=== PATIENT | male | born 1940 | race Caucasian/White ===

== ENCOUNTER 2016-11-09 14:54 | Inpatient (IN) | payer MEDICARE, MEDICAID ==
[2016-11-09] MEDS ORDERED: Ondansetron ODT 4 MG TAB PO PRN (20:43)
[2016-11-09] MEDS ORDERED: DEXTROSE 5% IV PRN (20:46)
[2016-11-09] MEDS ORDERED: WATER IV PRN (20:46)
[2016-11-09] MEDS ORDERED: Dextrose 50% Abboject 50 ML SYRINGE SLOW IVP PRN (20:52)
[2016-11-09] MEDS ORDERED: Dextrose 5% in Water 1,000 ML IV PRN (20:52)
[2016-11-09] MEDS ORDERED: GLUTAMINE PO SCH (21:00)
[2016-11-09] MEDS ORDERED: NUT TX GLUC INTOLER LAC FR SOY PO SCH (21:00)
[2016-11-09] MEDS ORDERED: CALCIUM HMB PO SCH (21:00)
[2016-11-09] MEDS ORDERED: ARGININE PO SCH (21:00)
[2016-11-09] MEDS ORDERED: Losartan Potassium 25 MG TAB PO SCH (22:00)
[2016-11-09] MEDS ORDERED: Latanoprost 0.005% Ophth Soln 2.5 ml Bottle EA EYE SCH (22:00)
[2016-11-09] MEDS ORDERED: Allopurinol 100 MG TAB PO SCH (22:00)
[2016-11-09] MEDS: Clopidogrel Bisulfate 75 MG TAB PO SCH (22:04)
[2016-11-09] MEDS: Pravastatin Sodium 20 MG TAB PO SCH (22:05)
[2016-11-09] MEDS: Meropenem 1 GM in Sodium Chloride 0.9% 100 ML IVPB SCH (22:06)
[2016-11-09] MEDS: Insulin Regular 300 UNITS/3 ML VIAL SC PRN (22:09)
[2016-11-10] MEDS: Meropenem 1 GM in Sodium Chloride 0.9% 100 ML IVPB SCH ×3 (05:08→23:39)
[2016-11-10] MEDS: Enoxaparin Sodium 30 MG/0.3 ML SYRINGE SC SCH (05:08)
[2016-11-10] MEDS: Insulin Regular 300 UNITS/3 ML VIAL SC PRN ×2 (08:08→21:01)
[2016-11-10] MEDS: Furosemide 20 MG TAB PO SCH (08:08)
[2016-11-10] MEDS: Brinzolamide 1% Ophth Soln 10 ml Bottle EA EYE SCH (08:13)
[2016-11-10] MEDS: Insulin NPH/Reg Insulin Hm 300 UNITS/3 ML VIAL SC SCH ×2 (08:56→17:20)
[2016-11-10] MEDS: Pravastatin Sodium 20 MG TAB PO SCH (20:49)
[2016-11-10] MEDS: Clopidogrel Bisulfate 75 MG TAB PO SCH (20:49)
[2016-11-10] MEDS: Allopurinol 100 MG TAB PO SCH (20:50)
[2016-11-10] MEDS: Losartan Potassium 25 MG TAB PO SCH (20:52)
[2016-11-10] MEDS: Latanoprost 0.005% Ophth Soln 2.5 ml Bottle EA EYE SCH (20:55)
[2016-11-10] MEDS ORDERED: Sodium Chloride 0.9% 10 ML ONE (23:20)
--- NOTE | 2016-11-11 00:33 | HP ---
DATE OF ADMISSION: 11/09/2016 ADMITTING PHYSICIAN: Chely Terrazas M.D. REASON FOR ADMISSION: Extended care stay in [facility] for skilled rehabilitation secondary to physical debility, IV antibiotics and wound care. HISTORY OF PRESENT ILLNESS: Mr. Carrasco is a 76-year-old male with a past medical history of diabetes type 2, congestive heart failure, coronary artery disease, hypertension, and gout. The patient was admitted to [facility] in [place] from 10/28/2016-11/09/2016 for worsening appearance of his left great toe amputation site and worsening pain at the site. The patient had the initial left great toe amputation on 09/24/2016 and he had followed closely with Wound Care and his surgeon, Dr. Conde. The patient was in wound care on the day of admission when wound care team noted wound to be worsening, nonhealing and significant pain, so subsequently the patient was admitted. At that time, the patient was noted to have gangrene of the left foot in addition to a nonhealing stage IV ulceration to his right heel. The patient underwent abdominal aortogram with bilateral iliofemoral and lower extremity run off on by vascular surgeon, Dr. Madden and he underwent an intraoperative debridement of his left foot by Dr. Conde. During this procedure, a wound VAC was also placed. During the hospitalization, he was started on daily hyperbaric oxygen therapy in order to augment the healing of his left foot wound and his wound started healing progressively nicely. He was seen by Infectious Disease physician Dr. Lyon who recommended IV meropenem 3 times a day, to be completed on 12/18/2016 due to his extensive wound gangrene and osteomyelitis. Due to need for long-term IV antibiotic, wound care and physical debility, the patient was transferred to [facility] for continuation of his physical therapy, wound care and IV antibiotics. When I saw the patient today, he was pleasant, was happy to be out of hospital, agree the wounds were healing progressively nicely and is happy about that. He requests to go home on as he and his family has plans with the grandkids on which that request will be granted. PAST MEDICAL HISTORY: Diabetes type 2, congestive heart failure, coronary artery disease, hypertension, and gout. PAST SURGICAL HISTORY: Coronary artery bypass grafting x3, partial amputation of the right fifth digit, amputation of the left great toe in August 2016, cataract surgery, intraoperative debridement of the right heel. ALLERGIES: AMOXICILLIN, CODEINE, LEVAQUIN, and NAPROXEN. SOCIAL HISTORY: Negative for tobacco use. The patient has a history of social alcohol use. He denies any illicit drug use. FAMILY HISTORY: Significant for diabetes and coronary artery disease. MEDICATIONS: Allopurinol 150 q.p.m., DuoNebs q.i.d. p.r.n. wheezing, Plavix 75 q.p.m., Lasix 20 daily, Lovenox 30 daily, insulin Humulin 70/30 10 q.p.m. and 20 q.a.m., losartan 100 q.p.m., meropenem 1 gram t.i.d., Pravachol 20 daily, travoprost eye drops, and brinzolamide eye drops. REVIEW OF SYSTEMS: General: The patient reports fatigue, weakness. He denies any fever. Eyes: Negative for eye pain, blurry vision, or discharge. ENT: Negative for congestion, sinus pain, sore throat, ear pain or discharge. Cardiovascular: Denies chest pain, dyspnea. Respiratory: Denies cough, congestion, sputum production. Gastrointestinal: Denies nausea, vomiting, abdominal pain, melena, or hematochezia. Musculoskeletal: Complains of weakness, complains of infections to bilateral foot and ulcer. Neurologic: Denies confusion, altered mental status change, headaches. Psychiatric: Denies depression, hallucinations, anxiety. PHYSICAL EXAMINATION: VITAL SIGNS: Temperature 98.4, pulse 94, respirations 20, O2 sat 100 on room air, and blood pressure 130/79. GENERAL: The patient is alert, awake, oriented x3, pleasant. HEENT: Normocephalic, atraumatic. PERRLA normal. Poor dentition with multiple missing teeth. NECK: Supple, without lymphadenopathy or thyroid nodules. LUNGS: Clear to auscultation bilaterally. HEART: Regular rate and rhythm without murmurs, rubs or gallops. ABDOMEN: Soft, nontender, nondistended, positive bowel sounds. Healed abdominal surgical scar. EXTREMITIES: The patient has warm with good femoral pulses. No palpable popliteal or pedal pulses. Unable to assess capillary refill. The patient had a left great toe amputation site with seriously deteriorated large area of necrotic skin medial to open one. The patient did have a wound VAC to the site that was removed to assess the wound. The left great toe wound is 7 cm x 4 cm and a 2 cm deep. He also has a left middle toe gangrene measuring 3 x 1.5 cm. He has a left heel stage I ulcer measuring 3 x 2 cm. He has a right heel stage IV ulcer measuring 3 cm x 3.5 cm and 1 cm deep. There is no redness, swelling, and drainage to any of the site; however, he has healing ulcerations and granulation tissues presents to the left great toe amputation site and to right heel. NEUROLOGIC: The patient hard of hearing, especially to his left. PSYCHIATRIC: Alert, awake, oriented x4. ASSESSMENT: 1. IV antibiotics for gangrene of left foot and osteomyelitis of the left foot. 2. Physical debility. 3. Diabetes type 2. 4. Atherosclerotic peripheral vascular disease with ulceration. 5. History of chronic congestive heart failure. 6. Diabetes type 2, uncontrolled. 7. Diabetic foot ulcers. 8. Gout. 9. Glaucoma. 10. Dyslipidemia. 11. Hypertension. PLAN: The patient will be admitted to [facility] for skilled rehabilitation. We will start daily IV antibiotics and wound care. We will consult physical therapy for strengthening, balance and gait training. They would also help with wound VAC and wound treatments. We will consult Occupational Therapy to address activities of daily living, assistive devices and we will consult and teach family and the patient how to use devices. We will continue IV meropenem 3 times a day, to be completed on 12/18/2016. The patient will be transported to [place] for hyperbaric oxygen treatments daily until 11/18/2016. We will continue daily wound care treatments. We will continue wound VAC changes Tuesday, Tuesday, Tuesday. We will continue the patient on his insulin and monitor his sugars closely. We will monitor the patient for any hemodynamic instability. We will restart all the patient's home medications. Anticipated length of stay is 6 weeks. DISPOSITION: This patient's destination upon discharge will be to home with home health. CODE STATUS: The patient is a FULL CODE. MTDD
[2016-11-11] MEDS: Enoxaparin Sodium 30 MG/0.3 ML SYRINGE SC SCH (05:48)
[2016-11-11] MEDS: Meropenem 1 GM in Sodium Chloride 0.9% 100 ML IVPB SCH ×3 (08:08→23:52)
[2016-11-11] MEDS: Furosemide 20 MG TAB PO SCH (08:09)
[2016-11-11] MEDS: Insulin NPH/Reg Insulin Hm 300 UNITS/3 ML VIAL SC SCH ×2 (08:09→16:12)
[2016-11-11] MEDS: Brinzolamide 1% Ophth Soln 10 ml Bottle EA EYE SCH (08:10)
[2016-11-11] MEDS: Clotrimazole 1% Cream 15 GM TUBE TOP SCH (08:10)
[2016-11-11] MEDS: Acetaminophen 325 MG TAB PO PRN (08:17)
[2016-11-11] MEDS: Insulin Regular 300 UNITS/3 ML VIAL SC PRN ×2 (17:56→20:20)
[2016-11-11] MEDS: Allopurinol 100 MG TAB PO SCH (20:23)
[2016-11-11] MEDS: Losartan Potassium 25 MG TAB PO SCH (20:25)
[2016-11-11] MEDS: Pravastatin Sodium 20 MG TAB PO SCH (20:25)
[2016-11-11] MEDS: Clopidogrel Bisulfate 75 MG TAB PO SCH (20:25)
[2016-11-11] MEDS: Latanoprost 0.005% Ophth Soln 2.5 ml Bottle EA EYE SCH (20:25)
[2016-11-12] MEDS: Enoxaparin Sodium 30 MG/0.3 ML SYRINGE SC SCH (05:42)
[2016-11-12] MEDS: Insulin NPH/Reg Insulin Hm 300 UNITS/3 ML VIAL SC SCH ×2 (08:11→16:47)
[2016-11-12] MEDS: Furosemide 20 MG TAB PO SCH (08:12)
[2016-11-12] MEDS: Meropenem 1 GM in Sodium Chloride 0.9% 100 ML IVPB SCH ×3 (08:12→23:41)
[2016-11-12] MEDS: Acetaminophen 325 MG TAB PO PRN ×2 (08:12→20:34)
[2016-11-12] MEDS: Brinzolamide 1% Ophth Soln 10 ml Bottle EA EYE SCH (08:15)
[2016-11-12] MEDS: Clotrimazole 1% Cream 15 GM TUBE TOP SCH (08:18)
[2016-11-12] MEDS: Fluticasone Propionate Nasal Spray 16 gm Bottle NASAL SCH (12:11)
[2016-11-12] MEDS: Insulin Regular 300 UNITS/3 ML VIAL SC PRN (16:47)
[2016-11-12] MEDS: Allopurinol 100 MG TAB PO SCH (20:32)
[2016-11-12] MEDS: Losartan Potassium 25 MG TAB PO SCH (20:33)
[2016-11-12] MEDS: Pravastatin Sodium 20 MG TAB PO SCH (20:34)
[2016-11-12] MEDS: Clopidogrel Bisulfate 75 MG TAB PO SCH (20:34)
[2016-11-12] MEDS: Latanoprost 0.005% Ophth Soln 2.5 ml Bottle EA EYE SCH (20:35)
[2016-11-13] MEDS: Enoxaparin Sodium 30 MG/0.3 ML SYRINGE SC SCH (05:44)
[2016-11-13] MEDS: Meropenem 1 GM in Sodium Chloride 0.9% 100 ML IVPB SCH ×3 (07:24→23:35)
[2016-11-13] MEDS: Insulin NPH/Reg Insulin Hm 300 UNITS/3 ML VIAL SC SCH ×2 (08:47→16:36)
[2016-11-13] MEDS: Clotrimazole 1% Cream 15 GM TUBE TOP SCH (08:48)
[2016-11-13] MEDS: Fluticasone Propionate Nasal Spray 16 gm Bottle NASAL SCH (08:48)
[2016-11-13] MEDS: Brinzolamide 1% Ophth Soln 10 ml Bottle EA EYE SCH (08:48)
[2016-11-13] MEDS: Furosemide 20 MG TAB PO SCH (08:49)
[2016-11-13] MEDS: Insulin Regular 300 UNITS/3 ML VIAL SC PRN ×2 (08:51→12:13)
[2016-11-13] MEDS ORDERED: Azithromycin 250 MG TAB PO SCH (12:00)
[2016-11-13] MEDS: Diabetic Tussin 200 MG/10 ML UDCUP PO PRN ×2 (12:12→20:40)
[2016-11-13] MEDS: Allopurinol 100 MG TAB PO SCH (20:37)
[2016-11-13] MEDS: Clopidogrel Bisulfate 75 MG TAB PO SCH (20:38)
[2016-11-13] MEDS: Pravastatin Sodium 20 MG TAB PO SCH (20:38)
[2016-11-13] MEDS: Docusate 100 MG CAP PO SCH (20:38)
[2016-11-13] MEDS: Losartan Potassium 25 MG TAB PO SCH (20:38)
[2016-11-13] MEDS: Latanoprost 0.005% Ophth Soln 2.5 ml Bottle EA EYE SCH (20:39)
[2016-11-14] MEDS: Enoxaparin Sodium 30 MG/0.3 ML SYRINGE SC SCH (05:24)
[2016-11-14] MEDS: Meropenem 1 GM in Sodium Chloride 0.9% 100 ML IVPB SCH ×3 (08:06→23:53)
[2016-11-14] MEDS: Insulin NPH/Reg Insulin Hm 300 UNITS/3 ML VIAL SC SCH ×2 (08:15→17:02)
[2016-11-14] MEDS: Polyethylene Glycol 3350 17 GM Packet PO SCH (08:15)
[2016-11-14] MEDS: Brinzolamide 1% Ophth Soln 10 ml Bottle EA EYE SCH (08:16)
[2016-11-14] MEDS: Clotrimazole 1% Cream 15 GM TUBE TOP SCH (08:17)
[2016-11-14] MEDS: Docusate 100 MG CAP PO SCH ×2 (08:17→20:49)
[2016-11-14] MEDS: Fluticasone Propionate Nasal Spray 16 gm Bottle NASAL SCH (08:17)
[2016-11-14] MEDS: Insulin Regular 300 UNITS/3 ML VIAL SC PRN ×2 (08:17→12:16)
[2016-11-14] MEDS: Azithromycin 250 MG TAB PO SCH (08:18)
[2016-11-14] MEDS: Furosemide 20 MG TAB PO SCH (08:18)
[2016-11-14] MEDS: Latanoprost 0.005% Ophth Soln 2.5 ml Bottle EA EYE SCH (20:49)
[2016-11-14] MEDS: Clopidogrel Bisulfate 75 MG TAB PO SCH (20:49)
[2016-11-14] MEDS: Allopurinol 100 MG TAB PO SCH (20:49)
[2016-11-14] MEDS: Pravastatin Sodium 20 MG TAB PO SCH (20:49)
[2016-11-14] MEDS: Losartan Potassium 25 MG TAB PO SCH (20:50)
[2016-11-15] MEDS: Enoxaparin Sodium 30 MG/0.3 ML SYRINGE SC SCH (05:23)
[2016-11-15] MEDS: Meropenem 1 GM in Sodium Chloride 0.9% 100 ML IVPB SCH ×2 (07:47→15:51)
[2016-11-15] MEDS: Docusate 100 MG CAP PO SCH ×2 (07:51→20:48)
[2016-11-15] MEDS: Furosemide 20 MG TAB PO SCH (07:51)
[2016-11-15] MEDS: Fluticasone Propionate Nasal Spray 16 gm Bottle NASAL SCH (07:52)
[2016-11-15] MEDS: Azithromycin 250 MG TAB PO SCH (07:52)
[2016-11-15] MEDS: Clotrimazole 1% Cream 15 GM TUBE TOP SCH (07:52)
[2016-11-15] MEDS: Polyethylene Glycol 3350 17 GM Packet PO SCH (07:53)
[2016-11-15] MEDS: Brinzolamide 1% Ophth Soln 10 ml Bottle EA EYE SCH (07:55)
[2016-11-15] MEDS: Insulin NPH/Reg Insulin Hm 300 UNITS/3 ML VIAL SC SCH ×2 (07:55→16:56)
[2016-11-15] MEDS: Fluconazole 100 MG TAB PO SCH ×2 (13:36→13:49)
[2016-11-15] MEDS ORDERED: Sodium Chloride 0.9% 0 ML ONE (16:01)
[2016-11-15] MEDS: Insulin Regular 300 UNITS/3 ML VIAL SC PRN (16:58)
[2016-11-15] MEDS: Clopidogrel Bisulfate 75 MG TAB PO SCH (20:48)
[2016-11-15] MEDS: Allopurinol 100 MG TAB PO SCH (20:48)
[2016-11-15] MEDS: Pravastatin Sodium 20 MG TAB PO SCH (20:48)
[2016-11-15] MEDS: Losartan Potassium 25 MG TAB PO SCH (20:48)
[2016-11-15] MEDS: Latanoprost 0.005% Ophth Soln 2.5 ml Bottle EA EYE SCH (20:49)
[2016-11-16] MEDS: Meropenem 1 GM in Sodium Chloride 0.9% 100 ML IVPB SCH ×3 (00:03→15:48)
[2016-11-16] MEDS: Enoxaparin Sodium 30 MG/0.3 ML SYRINGE SC SCH (05:28)
[2016-11-16] MEDS: Azithromycin 250 MG TAB PO SCH (07:56)
[2016-11-16] MEDS: Furosemide 20 MG TAB PO SCH (07:56)
[2016-11-16] MEDS: Docusate 100 MG CAP PO SCH ×2 (07:56→20:48)
[2016-11-16] MEDS: Fluticasone Propionate Nasal Spray 16 gm Bottle NASAL SCH (07:57)
[2016-11-16] MEDS: Insulin NPH/Reg Insulin Hm 300 UNITS/3 ML VIAL SC SCH ×2 (07:57→17:08)
[2016-11-16] MEDS: Polyethylene Glycol 3350 17 GM Packet PO SCH (07:58)
[2016-11-16] MEDS: Clotrimazole 1% Cream 15 GM TUBE TOP SCH (07:58)
[2016-11-16] MEDS: Brinzolamide 1% Ophth Soln 10 ml Bottle EA EYE SCH (07:59)
[2016-11-16] MEDS: Fluconazole 100 MG TAB PO SCH (14:09)
[2016-11-16] MEDS ORDERED: Sodium Chloride 0.9% 0 ML ONE (14:34)
[2016-11-16] MEDS: Insulin Regular 300 UNITS/3 ML VIAL SC PRN (17:09)
[2016-11-16] MEDS: Losartan Potassium 25 MG TAB PO SCH (20:48)
[2016-11-16] MEDS: Pravastatin Sodium 20 MG TAB PO SCH (20:48)
[2016-11-16] MEDS: Latanoprost 0.005% Ophth Soln 2.5 ml Bottle EA EYE SCH (20:49)
[2016-11-16] MEDS: Clopidogrel Bisulfate 75 MG TAB PO SCH (20:49)
[2016-11-16] MEDS: Allopurinol 100 MG TAB PO SCH (20:49)
[2016-11-17] MEDS: Meropenem 1 GM in Sodium Chloride 0.9% 100 ML IVPB SCH ×4 (00:07→23:43)
[2016-11-17] MEDS: Enoxaparin Sodium 30 MG/0.3 ML SYRINGE SC SCH (05:34)
[2016-11-17] MEDS: Polyethylene Glycol 3350 17 GM Packet PO SCH (08:36)
[2016-11-17] MEDS: Docusate 100 MG CAP PO SCH ×2 (08:37→20:24)
[2016-11-17] MEDS: Furosemide 20 MG TAB PO SCH (08:37)
[2016-11-17] MEDS: Azithromycin 250 MG TAB PO SCH (08:37)
[2016-11-17] MEDS: Insulin NPH/Reg Insulin Hm 300 UNITS/3 ML VIAL SC SCH ×2 (08:38→17:04)
[2016-11-17] MEDS: Insulin Regular 300 UNITS/3 ML VIAL SC PRN ×2 (08:39→21:29)
[2016-11-17] MEDS: Fluticasone Propionate Nasal Spray 16 gm Bottle NASAL SCH (08:40)
[2016-11-17] MEDS: Brinzolamide 1% Ophth Soln 10 ml Bottle EA EYE SCH (08:40)
[2016-11-17] MEDS: Clotrimazole 1% Cream 15 GM TUBE TOP SCH (08:41)
[2016-11-17] MEDS: Fluconazole 100 MG TAB PO SCH (10:26)
[2016-11-17] MEDS: Diabetic Tussin 200 MG/10 ML UDCUP PO PRN (10:29)
[2016-11-17] MEDS: Clopidogrel Bisulfate 75 MG TAB PO SCH (20:24)
[2016-11-17] MEDS: Allopurinol 100 MG TAB PO SCH (20:25)
[2016-11-17] MEDS: Losartan Potassium 25 MG TAB PO SCH (20:26)
[2016-11-17] MEDS: Pravastatin Sodium 20 MG TAB PO SCH (20:27)
[2016-11-17] MEDS: Latanoprost 0.005% Ophth Soln 2.5 ml Bottle EA EYE SCH (20:48)
[2016-11-18] MEDS: Diabetic Tussin 200 MG/10 ML UDCUP PO PRN (03:43)
[2016-11-18 05:06] LABS: ALT (SGPT) 21 U/L (0-55); AST (SGOT) 28 U/L (5-34); Albumin 3.1 g/dL (3.4-4.8); Alkaline Phosphatase 146 U/L (40-150); Anion Gap 14 mmol/L (10-20); BUN (Urea Nitrogen) 45 mg/dL (8.4-25.7); Bilirubin, Total 0.4 mg/dL (0.2-1.2); Calc. Creatinine Clearance 60 mL/min (70-130); Calcium 9.3 mg/dL (7.8-10.44); Carbon Dioxide 26 mmol/L (23-31); Chloride 101 mmol/L (98-107); Estimated GFR-MDRD 60; Globulin 3.3 g/dL (2.4-3.5); Glucose 159 mg/dL (83-110); Potassium 4.9 mmol/L (3.5-5.1); Protein, Total 6.4 g/dL (5.8-8.1); Sodium 136 mmol/L (136-145)
[2016-11-18 05:10] LABS: Hemoglobin 10.8 g/dL (14.0-18.0); Mean Corpuscular HGB CONC 33.4 g/dL (32.0-36.0); Mean Corpuscular Hemoglobin 30.9 pg (27.0-31.0); Mean Corpuscular Volume 92.5 fl (80.0-94.0); Mean Platelet Volume 6.4 fL (7.4-10.4); Platelet Count 189 thou/uL (130-400); RBC Distribution Width 16.3 % (11.5-14.5); White Blood Cell (WBC) Count 5.2 thou/uL (4.8-10.8)
[2016-11-18 05:11] LABS: Eosinophils 31 % (0-10); Lymphocytes 13 % (21-51); MDiff Complete? YES; Monocytes 3 % (0-10); Myelocyte 2 % (0-0); Neutrophil 34 % (42-75); PLT Morphology Comment Appears Adequate; Reactive Lymphocytes 17 % (0-10)
[2016-11-18] MEDS: Enoxaparin Sodium 30 MG/0.3 ML SYRINGE SC SCH (05:44)
[2016-11-18] MEDS: Meropenem 1 GM in Sodium Chloride 0.9% 100 ML IVPB SCH ×3 (07:57→23:37)
[2016-11-18] MEDS: Insulin NPH/Reg Insulin Hm 300 UNITS/3 ML VIAL SC SCH ×2 (08:02→17:09)
[2016-11-18] MEDS: Brinzolamide 1% Ophth Soln 10 ml Bottle EA EYE SCH (08:05)
[2016-11-18] MEDS: Polyethylene Glycol 3350 17 GM Packet PO SCH (08:05)
[2016-11-18] MEDS: Docusate 100 MG CAP PO SCH ×2 (08:05→20:28)
[2016-11-18] MEDS: Furosemide 20 MG TAB PO SCH (08:05)
[2016-11-18] MEDS: Clotrimazole 1% Cream 15 GM TUBE TOP SCH (08:06)
[2016-11-18] MEDS: Fluticasone Propionate Nasal Spray 16 gm Bottle NASAL SCH (08:06)
[2016-11-18] MEDS: Insulin Regular 300 UNITS/3 ML VIAL SC PRN ×2 (08:34→20:44)
[2016-11-18] MEDS: Clopidogrel Bisulfate 75 MG TAB PO SCH (20:27)
[2016-11-18] MEDS: Pravastatin Sodium 20 MG TAB PO SCH (20:28)
[2016-11-18] MEDS: Allopurinol 100 MG TAB PO SCH (20:28)
[2016-11-18] MEDS: Losartan Potassium 25 MG TAB PO SCH (20:29)
[2016-11-18] MEDS: Latanoprost 0.005% Ophth Soln 2.5 ml Bottle EA EYE SCH (20:32)
[2016-11-18] MEDS ORDERED: Sodium Chloride 0.9% 20 ML ONE (23:21)
[2016-11-19] MEDS: Enoxaparin Sodium 30 MG/0.3 ML SYRINGE SC SCH (05:27)
[2016-11-19] MEDS: Meropenem 1 GM in Sodium Chloride 0.9% 100 ML IVPB SCH ×3 (08:16→23:30)
[2016-11-19] MEDS: Docusate 100 MG CAP PO SCH ×2 (08:16→20:25)
[2016-11-19] MEDS: Furosemide 20 MG TAB PO SCH (08:21)
[2016-11-19] MEDS: Brinzolamide 1% Ophth Soln 10 ml Bottle EA EYE SCH (08:22)
[2016-11-19] MEDS: Polyethylene Glycol 3350 17 GM Packet PO SCH (08:23)
[2016-11-19] MEDS: Fluticasone Propionate Nasal Spray 16 gm Bottle NASAL SCH (08:25)
[2016-11-19] MEDS: Insulin NPH/Reg Insulin Hm 300 UNITS/3 ML VIAL SC SCH ×2 (08:30→17:44)
[2016-11-19] MEDS: Clotrimazole 1% Cream 15 GM TUBE TOP SCH (09:00)
[2016-11-19] MEDS: Insulin Regular 300 UNITS/3 ML VIAL SC PRN ×2 (13:13→20:30)
[2016-11-19] MEDS ORDERED: Sodium Chloride 0.9% 10 ML ONE (17:40)
[2016-11-19] MEDS: Allopurinol 100 MG TAB PO SCH (20:25)
[2016-11-19] MEDS: Pravastatin Sodium 20 MG TAB PO SCH (20:25)
[2016-11-19] MEDS: Losartan Potassium 25 MG TAB PO SCH (20:25)
[2016-11-19] MEDS: Latanoprost 0.005% Ophth Soln 2.5 ml Bottle EA EYE SCH (20:27)
[2016-11-19] MEDS: Clopidogrel Bisulfate 75 MG TAB PO SCH (21:17)
[2016-11-20] MEDS: Enoxaparin Sodium 30 MG/0.3 ML SYRINGE SC SCH (06:14)
[2016-11-20] MEDS: Meropenem 1 GM in Sodium Chloride 0.9% 100 ML IVPB SCH ×4 (08:54→23:20)
[2016-11-20] MEDS: Insulin Regular 300 UNITS/3 ML VIAL SC PRN ×3 (08:54→16:56)
[2016-11-20] MEDS: Insulin NPH/Reg Insulin Hm 300 UNITS/3 ML VIAL SC SCH ×2 (08:54→16:56)
[2016-11-20] MEDS: Furosemide 20 MG TAB PO SCH (08:54)
[2016-11-20] MEDS: Clotrimazole 1% Cream 15 GM TUBE TOP SCH (08:55)
[2016-11-20] MEDS: Docusate 100 MG CAP PO SCH ×2 (08:55→20:21)
[2016-11-20] MEDS: Fluticasone Propionate Nasal Spray 16 gm Bottle NASAL SCH (08:55)
[2016-11-20] MEDS: Brinzolamide 1% Ophth Soln 10 ml Bottle EA EYE SCH (08:55)
[2016-11-20] MEDS: Polyethylene Glycol 3350 17 GM Packet PO SCH (08:55)
[2016-11-20] MEDS: Allopurinol 100 MG TAB PO SCH (20:20)
[2016-11-20] MEDS: Losartan Potassium 25 MG TAB PO SCH (20:21)
[2016-11-20] MEDS: Pravastatin Sodium 20 MG TAB PO SCH (20:21)
[2016-11-20] MEDS: Clopidogrel Bisulfate 75 MG TAB PO SCH (20:22)
[2016-11-20] MEDS: Latanoprost 0.005% Ophth Soln 2.5 ml Bottle EA EYE SCH (20:22)
[2016-11-21] MEDS ORDERED: Meropenem 1 GM in Sodium Chloride 0.9% 100 ML IVPB SCH (06:00)
[2016-11-21] MEDS ORDERED: Docusate 100 MG CAP PO SCH (06:15)
[2016-11-21] MEDS ORDERED: Polyethylene Glycol 3350 17 GM Packet PO SCH (06:15)
[2016-11-21] MEDS ORDERED: Furosemide 20 MG TAB PO SCH (06:15)
[2016-11-21] MEDS: Meropenem 1 GM in Sodium Chloride 0.9% 100 ML IVPB SCH ×2 (06:16→21:16)
[2016-11-21] MEDS: Enoxaparin Sodium 30 MG/0.3 ML SYRINGE SC SCH (06:20)
[2016-11-21] MEDS: Docusate 100 MG CAP PO SCH ×2 (06:26→21:18)
[2016-11-21] MEDS: Furosemide 20 MG TAB PO SCH (06:26)
[2016-11-21] MEDS: Fluticasone Propionate Nasal Spray 16 gm Bottle NASAL SCH (06:29)
[2016-11-21] MEDS: Polyethylene Glycol 3350 17 GM Packet PO SCH (06:29)
[2016-11-21] MEDS: Clotrimazole 1% Cream 15 GM TUBE TOP SCH (06:30)
[2016-11-21] MEDS: Brinzolamide 1% Ophth Soln 10 ml Bottle EA EYE SCH (06:31)
[2016-11-21] MEDS: Insulin NPH/Reg Insulin Hm 300 UNITS/3 ML VIAL SC SCH ×2 (07:38→19:36)
[2016-11-21] MEDS: Allopurinol 100 MG TAB PO SCH (21:17)
[2016-11-21] MEDS: Pravastatin Sodium 20 MG TAB PO SCH (21:18)
[2016-11-21] MEDS: Clopidogrel Bisulfate 75 MG TAB PO SCH (21:18)
[2016-11-21] MEDS: Latanoprost 0.005% Ophth Soln 2.5 ml Bottle EA EYE SCH (21:19)
[2016-11-21] MEDS: Losartan Potassium 25 MG TAB PO SCH (21:19)
[2016-11-22] MEDS: Meropenem 1 GM in Sodium Chloride 0.9% 100 ML IVPB SCH ×3 (00:51→17:33)
[2016-11-22] MEDS: Diabetic Tussin 200 MG/10 ML UDCUP PO PRN (00:55)
[2016-11-22] MEDS: Enoxaparin Sodium 30 MG/0.3 ML SYRINGE SC SCH (06:28)
[2016-11-22] MEDS: Insulin NPH/Reg Insulin Hm 300 UNITS/3 ML VIAL SC SCH ×2 (08:19→17:34)
[2016-11-22] MEDS: Brinzolamide 1% Ophth Soln 10 ml Bottle EA EYE SCH (08:20)
[2016-11-22] MEDS: Clotrimazole 1% Cream 15 GM TUBE TOP SCH (08:20)
[2016-11-22] MEDS: Docusate 100 MG CAP PO SCH ×2 (08:20→20:46)
[2016-11-22] MEDS: Furosemide 20 MG TAB PO SCH (08:21)
[2016-11-22] MEDS: Fluticasone Propionate Nasal Spray 16 gm Bottle NASAL SCH (08:21)
[2016-11-22] MEDS: Polyethylene Glycol 3350 17 GM Packet PO SCH ×2 (08:22→08:35)
[2016-11-22] MEDS: Pravastatin Sodium 20 MG TAB PO SCH (20:45)
[2016-11-22] MEDS: Clopidogrel Bisulfate 75 MG TAB PO SCH (20:45)
[2016-11-22] MEDS: Allopurinol 100 MG TAB PO SCH (20:46)
[2016-11-22] MEDS: Losartan Potassium 25 MG TAB PO SCH (20:47)
[2016-11-22] MEDS: Latanoprost 0.005% Ophth Soln 2.5 ml Bottle EA EYE SCH (20:48)
[2016-11-23] MEDS: Meropenem 1 GM in Sodium Chloride 0.9% 100 ML IVPB SCH ×4 (00:15→23:36)
[2016-11-23] MEDS: Enoxaparin Sodium 30 MG/0.3 ML SYRINGE SC SCH (05:58)
[2016-11-23] MEDS: Insulin NPH/Reg Insulin Hm 300 UNITS/3 ML VIAL SC SCH ×2 (08:03→17:07)
[2016-11-23] MEDS: Polyethylene Glycol 3350 17 GM Packet PO SCH (08:05)
[2016-11-23] MEDS: Insulin Regular 300 UNITS/3 ML VIAL SC PRN ×2 (08:05→12:13)
[2016-11-23] MEDS: Furosemide 20 MG TAB PO SCH (08:06)
[2016-11-23] MEDS: Fluticasone Propionate Nasal Spray 16 gm Bottle NASAL SCH (08:06)
[2016-11-23] MEDS: Docusate 100 MG CAP PO SCH ×2 (08:06→21:23)
[2016-11-23] MEDS: Brinzolamide 1% Ophth Soln 10 ml Bottle EA EYE SCH (08:06)
[2016-11-23] MEDS: Clotrimazole 1% Cream 15 GM TUBE TOP SCH (08:07)
[2016-11-23] MEDS: Allopurinol 100 MG TAB PO SCH (21:22)
[2016-11-23] MEDS: Losartan Potassium 25 MG TAB PO SCH (21:22)
[2016-11-23] MEDS: Clopidogrel Bisulfate 75 MG TAB PO SCH (21:22)
[2016-11-23] MEDS: Pravastatin Sodium 20 MG TAB PO SCH (21:22)
[2016-11-23] MEDS: Latanoprost 0.005% Ophth Soln 2.5 ml Bottle EA EYE SCH (21:29)
[2016-11-24] MEDS: Enoxaparin Sodium 30 MG/0.3 ML SYRINGE SC SCH (06:04)
[2016-11-24] MEDS: Meropenem 1 GM in Sodium Chloride 0.9% 100 ML IVPB SCH ×3 (07:41→23:34)
[2016-11-24] MEDS: Insulin NPH/Reg Insulin Hm 300 UNITS/3 ML VIAL SC SCH ×2 (07:51→17:35)
[2016-11-24] MEDS: Insulin Regular 300 UNITS/3 ML VIAL SC PRN ×3 (07:52→20:41)
[2016-11-24] MEDS: Clotrimazole 1% Cream 15 GM TUBE TOP SCH (09:07)
[2016-11-24] MEDS: Furosemide 20 MG TAB PO SCH (09:07)
[2016-11-24] MEDS: Docusate 100 MG CAP PO SCH ×2 (09:07→20:39)
[2016-11-24] MEDS: Brinzolamide 1% Ophth Soln 10 ml Bottle EA EYE SCH (09:07)
[2016-11-24] MEDS: Polyethylene Glycol 3350 17 GM Packet PO SCH (09:08)
[2016-11-24] MEDS: Fluticasone Propionate Nasal Spray 16 gm Bottle NASAL SCH (09:08)
[2016-11-24] MEDS: Allopurinol 100 MG TAB PO SCH (20:38)
[2016-11-24] MEDS: Losartan Potassium 25 MG TAB PO SCH (20:38)
[2016-11-24] MEDS: Clopidogrel Bisulfate 75 MG TAB PO SCH (20:39)
[2016-11-24] MEDS: Pravastatin Sodium 20 MG TAB PO SCH (20:39)
[2016-11-24] MEDS: Latanoprost 0.005% Ophth Soln 2.5 ml Bottle EA EYE SCH (20:40)
[2016-11-25] MEDS: Enoxaparin Sodium 30 MG/0.3 ML SYRINGE SC SCH (05:49)
[2016-11-25] MEDS: Meropenem 1 GM in Sodium Chloride 0.9% 100 ML IVPB SCH ×2 (08:44→16:28)
[2016-11-25] MEDS: Polyethylene Glycol 3350 17 GM Packet PO SCH (08:45)
[2016-11-25] MEDS: Docusate 100 MG CAP PO SCH ×2 (08:45→21:55)
[2016-11-25] MEDS: Fluticasone Propionate Nasal Spray 16 gm Bottle NASAL SCH (08:45)
[2016-11-25] MEDS: Furosemide 20 MG TAB PO SCH (08:45)
[2016-11-25] MEDS: Insulin NPH/Reg Insulin Hm 300 UNITS/3 ML VIAL SC SCH ×2 (08:46→16:29)
[2016-11-25] MEDS: Insulin Regular 300 UNITS/3 ML VIAL SC PRN ×2 (08:46→12:07)
[2016-11-25] MEDS: Brinzolamide 1% Ophth Soln 10 ml Bottle EA EYE SCH (08:51)
[2016-11-25] MEDS: Clotrimazole 1% Cream 15 GM TUBE TOP SCH (08:52)
[2016-11-25] MEDS ORDERED: Sodium Chloride Irrig Solution 250 ML BOT ONE (13:21)
[2016-11-25] MEDS: Losartan Potassium 25 MG TAB PO SCH (21:53)
[2016-11-25] MEDS: Clopidogrel Bisulfate 75 MG TAB PO SCH (21:55)
[2016-11-25] MEDS: Allopurinol 100 MG TAB PO SCH (21:55)
[2016-11-25] MEDS: Latanoprost 0.005% Ophth Soln 2.5 ml Bottle EA EYE SCH (21:56)
[2016-11-25] MEDS: Pravastatin Sodium 20 MG TAB PO SCH (22:01)
[2016-11-26] MEDS: Meropenem 1 GM in Sodium Chloride 0.9% 100 ML IVPB SCH ×3 (00:34→15:45)
[2016-11-26] MEDS: Enoxaparin Sodium 30 MG/0.3 ML SYRINGE SC SCH (05:39)
[2016-11-26] MEDS: Insulin NPH/Reg Insulin Hm 300 UNITS/3 ML VIAL SC SCH ×2 (08:19→17:42)
[2016-11-26] MEDS: Insulin Regular 300 UNITS/3 ML VIAL SC PRN ×2 (08:19→20:40)
[2016-11-26] MEDS: Fluticasone Propionate Nasal Spray 16 gm Bottle NASAL SCH (08:20)
[2016-11-26] MEDS: Docusate 100 MG CAP PO SCH ×2 (08:20→20:37)
[2016-11-26] MEDS: Brinzolamide 1% Ophth Soln 10 ml Bottle EA EYE SCH (08:20)
[2016-11-26] MEDS: Furosemide 20 MG TAB PO SCH (08:20)
[2016-11-26] MEDS: Polyethylene Glycol 3350 17 GM Packet PO SCH (08:20)
[2016-11-26] MEDS: Clotrimazole 1% Cream 15 GM TUBE TOP SCH (08:25)
[2016-11-26] MEDS: Allopurinol 100 MG TAB PO SCH (20:36)
[2016-11-26] MEDS: Losartan Potassium 25 MG TAB PO SCH (20:37)
[2016-11-26] MEDS: Clopidogrel Bisulfate 75 MG TAB PO SCH (20:37)
[2016-11-26] MEDS: Pravastatin Sodium 20 MG TAB PO SCH (20:38)
[2016-11-26] MEDS: Latanoprost 0.005% Ophth Soln 2.5 ml Bottle EA EYE SCH (20:45)
[2016-11-26] MEDS ORDERED: Sodium Chloride 0.9% 10 ML ONE (23:48)
[2016-11-27] MEDS: Meropenem 1 GM in Sodium Chloride 0.9% 100 ML IVPB SCH ×4 (00:01→23:35)
[2016-11-27] MEDS: Enoxaparin Sodium 30 MG/0.3 ML SYRINGE SC SCH (05:24)
[2016-11-27] MEDS: Insulin NPH/Reg Insulin Hm 300 UNITS/3 ML VIAL SC SCH ×2 (08:06→17:20)
[2016-11-27] MEDS: Insulin Regular 300 UNITS/3 ML VIAL SC PRN ×2 (08:10→12:21)
[2016-11-27] MEDS: Furosemide 20 MG TAB PO SCH (08:13)
[2016-11-27] MEDS: Docusate 100 MG CAP PO SCH ×2 (08:13→20:29)
[2016-11-27] MEDS: Clotrimazole 1% Cream 15 GM TUBE TOP SCH (08:14)
[2016-11-27] MEDS: Brinzolamide 1% Ophth Soln 10 ml Bottle EA EYE SCH (08:14)
[2016-11-27] MEDS: Polyethylene Glycol 3350 17 GM Packet PO SCH (08:15)
[2016-11-27] MEDS: Fluticasone Propionate Nasal Spray 16 gm Bottle NASAL SCH (08:15)
[2016-11-27] MEDS: Allopurinol 100 MG TAB PO SCH (20:27)
[2016-11-27] MEDS: Clopidogrel Bisulfate 75 MG TAB PO SCH (20:28)
[2016-11-27] MEDS: Losartan Potassium 25 MG TAB PO SCH (20:29)
[2016-11-27] MEDS: Latanoprost 0.005% Ophth Soln 2.5 ml Bottle EA EYE SCH (20:29)
[2016-11-27] MEDS: Pravastatin Sodium 20 MG TAB PO SCH (20:31)
[2016-11-28] MEDS: Enoxaparin Sodium 30 MG/0.3 ML SYRINGE SC SCH (05:18)
[2016-11-28] MEDS: Meropenem 1 GM in Sodium Chloride 0.9% 100 ML IVPB SCH ×3 (07:47→23:10)
[2016-11-28] MEDS: Insulin NPH/Reg Insulin Hm 300 UNITS/3 ML VIAL SC SCH ×2 (07:49→20:46)
[2016-11-28] MEDS: Insulin Regular 300 UNITS/3 ML VIAL SC PRN (07:52)
[2016-11-28] MEDS: Docusate 100 MG CAP PO SCH ×2 (09:03→20:47)
[2016-11-28] MEDS: Furosemide 20 MG TAB PO SCH (09:04)
[2016-11-28] MEDS: Polyethylene Glycol 3350 17 GM Packet PO SCH (09:04)
[2016-11-28] MEDS: Fluticasone Propionate Nasal Spray 16 gm Bottle NASAL SCH (09:04)
[2016-11-28] MEDS: Brinzolamide 1% Ophth Soln 10 ml Bottle EA EYE SCH (09:04)
[2016-11-28] MEDS: Clotrimazole 1% Cream 15 GM TUBE TOP SCH (09:04)
[2016-11-28] MEDS: Allopurinol 100 MG TAB PO SCH (20:46)
[2016-11-28] MEDS: Losartan Potassium 25 MG TAB PO SCH (20:47)
[2016-11-28] MEDS: Clopidogrel Bisulfate 75 MG TAB PO SCH (20:47)
[2016-11-28] MEDS: Pravastatin Sodium 20 MG TAB PO SCH (20:48)
[2016-11-28] MEDS: Latanoprost 0.005% Ophth Soln 2.5 ml Bottle EA EYE SCH (20:48)
[2016-11-29] MEDS: Enoxaparin Sodium 30 MG/0.3 ML SYRINGE SC SCH (05:31)
[2016-11-29] MEDS: Meropenem 1 GM in Sodium Chloride 0.9% 100 ML IVPB SCH ×2 (07:30→16:18)
[2016-11-29] MEDS: Insulin NPH/Reg Insulin Hm 300 UNITS/3 ML VIAL SC SCH ×2 (07:41→17:17)
[2016-11-29] MEDS: Furosemide 20 MG TAB PO SCH (08:38)
[2016-11-29] MEDS: Docusate 100 MG CAP PO SCH ×2 (08:38→20:43)
[2016-11-29] MEDS: Fluticasone Propionate Nasal Spray 16 gm Bottle NASAL SCH (08:39)
[2016-11-29] MEDS: Clotrimazole 1% Cream 15 GM TUBE TOP SCH (08:39)
[2016-11-29] MEDS: Brinzolamide 1% Ophth Soln 10 ml Bottle EA EYE SCH (08:39)
[2016-11-29] MEDS: Polyethylene Glycol 3350 17 GM Packet PO SCH (08:40)
[2016-11-29] MEDS: Pravastatin Sodium 20 MG TAB PO SCH (20:41)
[2016-11-29] MEDS: Allopurinol 100 MG TAB PO SCH (20:41)
[2016-11-29] MEDS: Clopidogrel Bisulfate 75 MG TAB PO SCH (20:41)
[2016-11-29] MEDS: Losartan Potassium 25 MG TAB PO SCH (20:42)
[2016-11-29] MEDS: Latanoprost 0.005% Ophth Soln 2.5 ml Bottle EA EYE SCH (20:43)
[2016-11-29] MEDS: Insulin Regular 300 UNITS/3 ML VIAL SC PRN (20:44)
[2016-11-30] MEDS: Meropenem 1 GM in Sodium Chloride 0.9% 100 ML IVPB SCH ×3 (00:10→17:03)
[2016-11-30] MEDS: Enoxaparin Sodium 30 MG/0.3 ML SYRINGE SC SCH (05:42)
[2016-11-30] MEDS: Docusate 100 MG CAP PO SCH ×2 (09:11→20:34)
[2016-11-30] MEDS: Furosemide 20 MG TAB PO SCH (09:11)
[2016-11-30] MEDS: Fluticasone Propionate Nasal Spray 16 gm Bottle NASAL SCH (09:11)
[2016-11-30] MEDS: Brinzolamide 1% Ophth Soln 10 ml Bottle EA EYE SCH (09:11)
[2016-11-30] MEDS: Polyethylene Glycol 3350 17 GM Packet PO SCH (09:12)
[2016-11-30] MEDS: Clotrimazole 1% Cream 15 GM TUBE TOP SCH (09:12)
[2016-11-30] MEDS: Insulin NPH/Reg Insulin Hm 300 UNITS/3 ML VIAL SC SCH ×3 (09:13→17:22)
[2016-11-30] MEDS: Insulin Regular 300 UNITS/3 ML VIAL SC PRN (12:15)
[2016-11-30] MEDS: Losartan Potassium 25 MG TAB PO SCH (20:32)
[2016-11-30] MEDS: Clopidogrel Bisulfate 75 MG TAB PO SCH (20:33)
[2016-11-30] MEDS: Allopurinol 100 MG TAB PO SCH (20:33)
[2016-11-30] MEDS: Pravastatin Sodium 20 MG TAB PO SCH (20:34)
[2016-11-30] MEDS: Latanoprost 0.005% Ophth Soln 2.5 ml Bottle EA EYE SCH (20:35)
[2016-12-01] MEDS: Sodium Chloride 0.9% 10 ML ONE ×2 (00:05→16:57)
[2016-12-01] MEDS: Meropenem 1 GM in Sodium Chloride 0.9% 100 ML IVPB SCH ×3 (00:07→16:56)
[2016-12-01] MEDS: Enoxaparin Sodium 30 MG/0.3 ML SYRINGE SC SCH (05:45)
[2016-12-01] MEDS: Furosemide 20 MG TAB PO SCH (08:23)
[2016-12-01] MEDS: Polyethylene Glycol 3350 17 GM Packet PO SCH (08:23)
[2016-12-01] MEDS: Docusate 100 MG CAP PO SCH ×2 (08:24→20:44)
[2016-12-01] MEDS: Fluticasone Propionate Nasal Spray 16 gm Bottle NASAL SCH (08:24)
[2016-12-01] MEDS: Clotrimazole 1% Cream 15 GM TUBE TOP SCH (08:24)
[2016-12-01] MEDS: Brinzolamide 1% Ophth Soln 10 ml Bottle EA EYE SCH (08:25)
[2016-12-01] MEDS: Insulin NPH/Reg Insulin Hm 300 UNITS/3 ML VIAL SC SCH ×2 (08:28→16:57)
[2016-12-01] MEDS: Insulin Regular 300 UNITS/3 ML VIAL SC PRN ×3 (08:29→20:43)
[2016-12-01] MEDS: Losartan Potassium 25 MG TAB PO SCH (20:44)
[2016-12-01] MEDS: Clopidogrel Bisulfate 75 MG TAB PO SCH (20:46)
[2016-12-01] MEDS: Allopurinol 100 MG TAB PO SCH (20:47)
[2016-12-01] MEDS: Pravastatin Sodium 20 MG TAB PO SCH (20:48)
[2016-12-01] MEDS: Latanoprost 0.005% Ophth Soln 2.5 ml Bottle EA EYE SCH (20:48)
[2016-12-02] MEDS: Meropenem 1 GM in Sodium Chloride 0.9% 100 ML IVPB SCH ×4 (00:31→23:41)
[2016-12-02] MEDS: Enoxaparin Sodium 30 MG/0.3 ML SYRINGE SC SCH (05:34)
[2016-12-02] MEDS: Insulin NPH/Reg Insulin Hm 300 UNITS/3 ML VIAL SC SCH ×2 (08:11→16:55)
[2016-12-02] MEDS: Insulin Regular 300 UNITS/3 ML VIAL SC PRN (08:11)
[2016-12-02] MEDS: Furosemide 20 MG TAB PO SCH (08:12)
[2016-12-02] MEDS: Docusate 100 MG CAP PO SCH ×2 (08:12→20:28)
[2016-12-02] MEDS: Brinzolamide 1% Ophth Soln 10 ml Bottle EA EYE SCH (08:12)
[2016-12-02] MEDS: Fluticasone Propionate Nasal Spray 16 gm Bottle NASAL SCH (08:14)
[2016-12-02] MEDS: Polyethylene Glycol 3350 17 GM Packet PO SCH (08:14)
[2016-12-02] MEDS: Clotrimazole 1% Cream 15 GM TUBE TOP SCH (08:14)
[2016-12-02] MEDS: Allopurinol 100 MG TAB PO SCH (20:29)
[2016-12-02] MEDS: Clopidogrel Bisulfate 75 MG TAB PO SCH (20:29)
[2016-12-02] MEDS: Losartan Potassium 25 MG TAB PO SCH (20:30)
[2016-12-02] MEDS: Latanoprost 0.005% Ophth Soln 2.5 ml Bottle EA EYE SCH (20:31)
[2016-12-02] MEDS: Pravastatin Sodium 20 MG TAB PO SCH (20:31)
[2016-12-03] MEDS: Enoxaparin Sodium 30 MG/0.3 ML SYRINGE SC SCH (05:53)
[2016-12-03] MEDS: Meropenem 1 GM in Sodium Chloride 0.9% 100 ML IVPB SCH ×3 (08:50→23:22)
[2016-12-03] MEDS: Docusate 100 MG CAP PO SCH ×2 (08:52→20:46)
[2016-12-03] MEDS: Furosemide 20 MG TAB PO SCH (08:52)
[2016-12-03] MEDS: Polyethylene Glycol 3350 17 GM Packet PO SCH (08:52)
[2016-12-03] MEDS: Fluticasone Propionate Nasal Spray 16 gm Bottle NASAL SCH (08:53)
[2016-12-03] MEDS: Clotrimazole 1% Cream 15 GM TUBE TOP SCH (08:55)
[2016-12-03] MEDS: Acetaminophen 325 MG TAB PO PRN ×2 (09:27→22:31)
[2016-12-03] MEDS: Brinzolamide 1% Ophth Soln 10 ml Bottle EA EYE SCH (09:28)
[2016-12-03] MEDS: Insulin NPH/Reg Insulin Hm 300 UNITS/3 ML VIAL SC SCH (16:50)
[2016-12-03] MEDS: Insulin Regular 300 UNITS/3 ML VIAL SC PRN (16:51)
[2016-12-03] MEDS: Allopurinol 100 MG TAB PO SCH (20:45)
[2016-12-03] MEDS: Clopidogrel Bisulfate 75 MG TAB PO SCH (20:46)
[2016-12-03] MEDS: Latanoprost 0.005% Ophth Soln 2.5 ml Bottle EA EYE SCH (20:47)
[2016-12-03] MEDS: Losartan Potassium 25 MG TAB PO SCH (20:47)
[2016-12-03] MEDS: Pravastatin Sodium 20 MG TAB PO SCH (20:47)
[2016-12-04] MEDS: Enoxaparin Sodium 30 MG/0.3 ML SYRINGE SC SCH (05:24)
[2016-12-04] MEDS: Meropenem 1 GM in Sodium Chloride 0.9% 100 ML IVPB SCH ×3 (08:48→23:18)
[2016-12-04] MEDS: Acetaminophen 325 MG TAB PO PRN (08:51)
[2016-12-04] MEDS: Brinzolamide 1% Ophth Soln 10 ml Bottle EA EYE SCH (08:51)
[2016-12-04] MEDS: Polyethylene Glycol 3350 17 GM Packet PO SCH (08:52)
[2016-12-04] MEDS: Insulin NPH/Reg Insulin Hm 300 UNITS/3 ML VIAL SC SCH ×2 (08:53→16:43)
[2016-12-04] MEDS: Insulin Regular 300 UNITS/3 ML VIAL SC PRN ×2 (08:54→11:56)
[2016-12-04] MEDS: Docusate 100 MG CAP PO SCH ×2 (09:02→20:54)
[2016-12-04] MEDS: Furosemide 20 MG TAB PO SCH (09:02)
[2016-12-04] MEDS: Fluticasone Propionate Nasal Spray 16 gm Bottle NASAL SCH (09:02)
[2016-12-04] MEDS: Clotrimazole 1% Cream 15 GM TUBE TOP SCH (09:03)
[2016-12-04] MEDS: Clopidogrel Bisulfate 75 MG TAB PO SCH (20:54)
[2016-12-04] MEDS: Allopurinol 100 MG TAB PO SCH (20:54)
[2016-12-04] MEDS: Latanoprost 0.005% Ophth Soln 2.5 ml Bottle EA EYE SCH (20:54)
[2016-12-04] MEDS: Pravastatin Sodium 20 MG TAB PO SCH (20:54)
[2016-12-04] MEDS: Losartan Potassium 25 MG TAB PO SCH (20:54)
[2016-12-05] MEDS: Enoxaparin Sodium 30 MG/0.3 ML SYRINGE SC SCH (05:17)
[2016-12-05] MEDS: Docusate 100 MG CAP PO SCH ×2 (08:13→20:31)
[2016-12-05] MEDS: Furosemide 20 MG TAB PO SCH (08:13)
[2016-12-05] MEDS: Brinzolamide 1% Ophth Soln 10 ml Bottle EA EYE SCH (08:13)
[2016-12-05] MEDS: Meropenem 1 GM in Sodium Chloride 0.9% 100 ML IVPB SCH ×2 (08:14→16:51)
[2016-12-05] MEDS: Fluticasone Propionate Nasal Spray 16 gm Bottle NASAL SCH (08:14)
[2016-12-05] MEDS: Polyethylene Glycol 3350 17 GM Packet PO SCH (08:14)
[2016-12-05] MEDS: Insulin NPH/Reg Insulin Hm 300 UNITS/3 ML VIAL SC SCH ×2 (08:15→16:52)
[2016-12-05] MEDS: Insulin Regular 300 UNITS/3 ML VIAL SC PRN ×2 (08:15→16:58)
[2016-12-05] MEDS: Clotrimazole 1% Cream 15 GM TUBE TOP SCH (08:33)
[2016-12-05] MEDS: Clopidogrel Bisulfate 75 MG TAB PO SCH (20:31)
[2016-12-05] MEDS: Losartan Potassium 25 MG TAB PO SCH (20:31)
[2016-12-05] MEDS: Allopurinol 100 MG TAB PO SCH (20:31)
[2016-12-05] MEDS: Pravastatin Sodium 20 MG TAB PO SCH (20:32)
[2016-12-05] MEDS: Latanoprost 0.005% Ophth Soln 2.5 ml Bottle EA EYE SCH (20:35)
[2016-12-06] MEDS: Meropenem 1 GM in Sodium Chloride 0.9% 100 ML IVPB SCH ×3 (00:06→16:27)
[2016-12-06] MEDS: Enoxaparin Sodium 30 MG/0.3 ML SYRINGE SC SCH (06:11)
[2016-12-06] MEDS: Insulin NPH/Reg Insulin Hm 300 UNITS/3 ML VIAL SC SCH ×2 (07:40→16:31)
[2016-12-06] MEDS: Docusate 100 MG CAP PO SCH ×2 (08:23→20:57)
[2016-12-06] MEDS: Polyethylene Glycol 3350 17 GM Packet PO SCH (08:23)
[2016-12-06] MEDS: Furosemide 20 MG TAB PO SCH (08:23)
[2016-12-06] MEDS: Fluticasone Propionate Nasal Spray 16 gm Bottle NASAL SCH (08:23)
[2016-12-06] MEDS: Brinzolamide 1% Ophth Soln 10 ml Bottle EA EYE SCH (08:24)
[2016-12-06] MEDS: Clotrimazole 1% Cream 15 GM TUBE TOP SCH (08:24)
[2016-12-06] MEDS: Insulin Regular 300 UNITS/3 ML VIAL SC PRN (08:30)
[2016-12-06] MEDS: Pravastatin Sodium 20 MG TAB PO SCH (20:57)
[2016-12-06] MEDS: Losartan Potassium 25 MG TAB PO SCH (20:57)
[2016-12-06] MEDS: Allopurinol 100 MG TAB PO SCH (20:58)
[2016-12-06] MEDS: Clopidogrel Bisulfate 75 MG TAB PO SCH (20:58)
[2016-12-06] MEDS: Latanoprost 0.005% Ophth Soln 2.5 ml Bottle EA EYE SCH (21:01)
[2016-12-06] MEDS: Triamcinolone 0.1% Cream 15 GM TUBE TOP SCH (21:01)
[2016-12-07] MEDS: Meropenem 1 GM in Sodium Chloride 0.9% 100 ML IVPB SCH ×4 (00:21→23:10)
[2016-12-07] MEDS: Enoxaparin Sodium 30 MG/0.3 ML SYRINGE SC SCH (05:16)
[2016-12-07] MEDS: Insulin NPH/Reg Insulin Hm 300 UNITS/3 ML VIAL SC SCH ×4 (07:30→16:49)
[2016-12-07] MEDS: Polyethylene Glycol 3350 17 GM Packet PO SCH (08:16)
[2016-12-07] MEDS: Furosemide 20 MG TAB PO SCH (08:19)
[2016-12-07] MEDS: Docusate 100 MG CAP PO SCH ×2 (08:19→20:23)
[2016-12-07] MEDS: Brinzolamide 1% Ophth Soln 10 ml Bottle EA EYE SCH (08:20)
[2016-12-07] MEDS: Fluticasone Propionate Nasal Spray 16 gm Bottle NASAL SCH (08:21)
[2016-12-07] MEDS: Clotrimazole 1% Cream 15 GM TUBE TOP SCH (08:21)
[2016-12-07] MEDS: Triamcinolone 0.1% Cream 15 GM TUBE TOP SCH ×2 (08:22→20:25)
[2016-12-07] MEDS: Insulin Regular 300 UNITS/3 ML VIAL SC PRN (11:42)
[2016-12-07] MEDS: Losartan Potassium 25 MG TAB PO SCH (20:23)
[2016-12-07] MEDS: Allopurinol 100 MG TAB PO SCH (20:23)
[2016-12-07] MEDS: Pravastatin Sodium 20 MG TAB PO SCH (20:23)
[2016-12-07] MEDS: Latanoprost 0.005% Ophth Soln 2.5 ml Bottle EA EYE SCH (20:23)
[2016-12-07] MEDS: Clopidogrel Bisulfate 75 MG TAB PO SCH (20:23)
[2016-12-08] MEDS: Enoxaparin Sodium 30 MG/0.3 ML SYRINGE SC SCH (05:31)
[2016-12-08] MEDS: Meropenem 1 GM in Sodium Chloride 0.9% 100 ML IVPB SCH ×2 (08:20→15:44)
[2016-12-08] MEDS: Docusate 100 MG CAP PO SCH ×2 (08:20→20:37)
[2016-12-08] MEDS: Furosemide 20 MG TAB PO SCH (08:20)
[2016-12-08] MEDS: Insulin NPH/Reg Insulin Hm 300 UNITS/3 ML VIAL SC SCH ×2 (08:21→17:18)
[2016-12-08] MEDS: Brinzolamide 1% Ophth Soln 10 ml Bottle EA EYE SCH (08:22)
[2016-12-08] MEDS: Polyethylene Glycol 3350 17 GM Packet PO SCH (08:22)
[2016-12-08] MEDS: Clotrimazole 1% Cream 15 GM TUBE TOP SCH (08:22)
[2016-12-08] MEDS: Fluticasone Propionate Nasal Spray 16 gm Bottle NASAL SCH (08:22)
[2016-12-08] MEDS: Triamcinolone 0.1% Cream 15 GM TUBE TOP SCH ×2 (08:32→20:42)
[2016-12-08 12:06] LABS: #Basophils 0.1 thou/uL (0.0-0.2); #Eosinphils 1.1 thou/uL (0.0-0.7); #Lymphocytes 1.4 thou/uL (1.20-3.40); #Monocytes 0.6 thou/uL (0.11-0.59); #Neutrophils 3.1 thou/uL (1.40-6.50); %Basophils 1.1 % (0.0-1.0); %Eosinophils 17.8 % (0.0-10.0); %Lymphocytes 22.4 % (21.0-51.0); %Monocytes 9.2 % (0.0-10.0); %Neutrophils 49.5 % (42.0-75.0); Mean Corpuscular HGB CONC 33.2 g/dL (32.0-36.0); Mean Corpuscular Hemoglobin 31.2 pg (27.0-31.0); Mean Platelet Volume 6.8 fL (7.4-10.4); Platelet Count 196 thou/uL (130-400); RBC Distribution Width 14.6 % (11.5-14.5); Red Blood Cell (RBC) Count 3.84 mill/uL (4.70-6.10); White Blood Cell (WBC) Count 6.2 thou/uL (4.8-10.8)
[2016-12-08] MEDS ORDERED: Sodium Chloride Irrig Solution 250 ML BOT ONE (12:23)
[2016-12-08 12:26] LABS: Prothrombin Time 13.5 SEC (12.0-14.7)
[2016-12-08] MEDS: Insulin Regular 300 UNITS/3 ML VIAL SC PRN (17:19)
[2016-12-08] MEDS: Acetaminophen 325 MG TAB PO PRN (18:26)
[2016-12-08] MEDS: Losartan Potassium 25 MG TAB PO SCH (20:35)
[2016-12-08] MEDS: Allopurinol 100 MG TAB PO SCH (20:37)
[2016-12-08] MEDS: Pravastatin Sodium 20 MG TAB PO SCH (20:38)
[2016-12-08] MEDS: Clopidogrel Bisulfate 75 MG TAB PO SCH (20:38)
[2016-12-08] MEDS: Latanoprost 0.005% Ophth Soln 2.5 ml Bottle EA EYE SCH (20:39)
[2016-12-09] MEDS: Meropenem 1 GM in Sodium Chloride 0.9% 100 ML IVPB SCH ×4 (00:17→23:43)
[2016-12-09] MEDS: Insulin NPH/Reg Insulin Hm 300 UNITS/3 ML VIAL SC SCH ×2 (08:17→16:48)
[2016-12-09] MEDS: Docusate 100 MG CAP PO SCH ×2 (08:17→20:53)
[2016-12-09] MEDS: Brinzolamide 1% Ophth Soln 10 ml Bottle EA EYE SCH (08:17)
[2016-12-09] MEDS: Fluticasone Propionate Nasal Spray 16 gm Bottle NASAL SCH (08:18)
[2016-12-09] MEDS: Polyethylene Glycol 3350 17 GM Packet PO SCH (08:18)
[2016-12-09] MEDS: Furosemide 20 MG TAB PO SCH (08:18)
[2016-12-09] MEDS: Clotrimazole 1% Cream 15 GM TUBE TOP SCH (08:18)
[2016-12-09] MEDS: Triamcinolone 0.1% Cream 15 GM TUBE TOP SCH ×2 (08:19→21:49)
[2016-12-09] MEDS: Losartan Potassium 25 MG TAB PO SCH (20:52)
[2016-12-09] MEDS: Clopidogrel Bisulfate 75 MG TAB PO SCH (20:53)
[2016-12-09] MEDS: Pravastatin Sodium 20 MG TAB PO SCH (20:54)
[2016-12-09] MEDS: Allopurinol 100 MG TAB PO SCH (20:54)
[2016-12-09] MEDS: Latanoprost 0.005% Ophth Soln 2.5 ml Bottle EA EYE SCH (20:55)
[2016-12-10] MEDS: Meropenem 1 GM in Sodium Chloride 0.9% 100 ML IVPB SCH ×2 (07:30→16:34)
[2016-12-10] MEDS: Insulin NPH/Reg Insulin Hm 300 UNITS/3 ML VIAL SC SCH ×2 (07:33→17:16)
[2016-12-10] MEDS: Docusate 100 MG CAP PO SCH ×2 (09:15→20:28)
[2016-12-10] MEDS: Furosemide 20 MG TAB PO SCH (09:15)
[2016-12-10] MEDS: Fluticasone Propionate Nasal Spray 16 gm Bottle NASAL SCH (09:15)
[2016-12-10] MEDS: Insulin Regular 300 UNITS/3 ML VIAL SC PRN ×2 (09:15→11:55)
[2016-12-10] MEDS: Brinzolamide 1% Ophth Soln 10 ml Bottle EA EYE SCH (09:15)
[2016-12-10] MEDS: Triamcinolone 0.1% Cream 15 GM TUBE TOP SCH ×2 (09:15→20:38)
[2016-12-10] MEDS: Polyethylene Glycol 3350 17 GM Packet PO SCH (09:15)
[2016-12-10] MEDS: Clotrimazole 1% Cream 15 GM TUBE TOP SCH (12:53)
[2016-12-10] MEDS: Allopurinol 100 MG TAB PO SCH (20:25)
[2016-12-10] MEDS: Losartan Potassium 25 MG TAB PO SCH ×2 (20:27→20:28)
[2016-12-10] MEDS: Clopidogrel Bisulfate 75 MG TAB PO SCH (20:29)
[2016-12-10] MEDS: Pravastatin Sodium 20 MG TAB PO SCH (20:31)
[2016-12-10] MEDS: Latanoprost 0.005% Ophth Soln 2.5 ml Bottle EA EYE SCH (20:34)
[2016-12-11] MEDS: Meropenem 1 GM in Sodium Chloride 0.9% 100 ML IVPB SCH ×4 (00:22→23:24)
[2016-12-11] MEDS: Insulin NPH/Reg Insulin Hm 300 UNITS/3 ML VIAL SC SCH ×2 (07:44→17:13)
[2016-12-11] MEDS: Fluticasone Propionate Nasal Spray 16 gm Bottle NASAL SCH (08:26)
[2016-12-11] MEDS: Brinzolamide 1% Ophth Soln 10 ml Bottle EA EYE SCH (08:26)
[2016-12-11] MEDS: Furosemide 20 MG TAB PO SCH (08:26)
[2016-12-11] MEDS: Polyethylene Glycol 3350 17 GM Packet PO SCH (08:26)
[2016-12-11] MEDS: Triamcinolone 0.1% Cream 15 GM TUBE TOP SCH ×2 (08:26→20:32)
[2016-12-11] MEDS: Docusate 100 MG CAP PO SCH ×2 (08:26→20:31)
[2016-12-11] MEDS: Clotrimazole 1% Cream 15 GM TUBE TOP SCH (08:28)
[2016-12-11] MEDS: Insulin Regular 300 UNITS/3 ML VIAL SC PRN ×2 (12:19→17:15)
[2016-12-11] MEDS: Allopurinol 100 MG TAB PO SCH (20:30)
[2016-12-11] MEDS: Pravastatin Sodium 20 MG TAB PO SCH (20:31)
[2016-12-11] MEDS: Clopidogrel Bisulfate 75 MG TAB PO SCH (20:31)
[2016-12-11] MEDS: Latanoprost 0.005% Ophth Soln 2.5 ml Bottle EA EYE SCH (20:35)
[2016-12-12] MEDS: Meropenem 1 GM in Sodium Chloride 0.9% 100 ML IVPB SCH ×3 (07:01→23:13)
[2016-12-12] MEDS: Brinzolamide 1% Ophth Soln 10 ml Bottle EA EYE SCH (08:28)
[2016-12-12] MEDS: Insulin NPH/Reg Insulin Hm 300 UNITS/3 ML VIAL SC SCH ×2 (08:28→16:10)
[2016-12-12] MEDS: Docusate 100 MG CAP PO SCH ×2 (08:29→22:18)
[2016-12-12] MEDS: Clotrimazole 1% Cream 15 GM TUBE TOP SCH (08:29)
[2016-12-12] MEDS: Furosemide 20 MG TAB PO SCH (08:29)
[2016-12-12] MEDS: Fluticasone Propionate Nasal Spray 16 gm Bottle NASAL SCH (08:29)
[2016-12-12] MEDS: Triamcinolone 0.1% Cream 15 GM TUBE TOP SCH ×2 (08:30→22:27)
[2016-12-12] MEDS: Polyethylene Glycol 3350 17 GM Packet PO SCH (08:30)
[2016-12-12] MEDS: Clopidogrel Bisulfate 75 MG TAB PO SCH (22:18)
[2016-12-12] MEDS: Allopurinol 100 MG TAB PO SCH (22:19)
[2016-12-12] MEDS: Losartan Potassium 25 MG TAB PO SCH (22:20)
[2016-12-12] MEDS: Pravastatin Sodium 20 MG TAB PO SCH (22:20)
[2016-12-12] MEDS: Latanoprost 0.005% Ophth Soln 2.5 ml Bottle EA EYE SCH (22:22)
[2016-12-13] MEDS: Insulin NPH/Reg Insulin Hm 300 UNITS/3 ML VIAL SC SCH ×2 (08:56→17:00)
[2016-12-13] MEDS: Meropenem 1 GM in Sodium Chloride 0.9% 100 ML IVPB SCH ×3 (08:56→23:35)
[2016-12-13] MEDS: Brinzolamide 1% Ophth Soln 10 ml Bottle EA EYE SCH (08:57)
[2016-12-13] MEDS: Docusate 100 MG CAP PO SCH ×2 (08:57→20:23)
[2016-12-13] MEDS: Furosemide 20 MG TAB PO SCH (08:57)
[2016-12-13] MEDS: Fluticasone Propionate Nasal Spray 16 gm Bottle NASAL SCH (08:57)
[2016-12-13] MEDS: Triamcinolone 0.1% Cream 15 GM TUBE TOP SCH ×2 (08:58→20:28)
[2016-12-13] MEDS: Clotrimazole 1% Cream 15 GM TUBE TOP SCH (08:58)
[2016-12-13] MEDS: Polyethylene Glycol 3350 17 GM Packet PO SCH (08:58)
[2016-12-13] MEDS: Losartan Potassium 25 MG TAB PO SCH (20:21)
[2016-12-13] MEDS: Clopidogrel Bisulfate 75 MG TAB PO SCH (20:23)
[2016-12-13] MEDS: Allopurinol 100 MG TAB PO SCH (20:23)
[2016-12-13] MEDS: Latanoprost 0.005% Ophth Soln 2.5 ml Bottle EA EYE SCH (20:24)
[2016-12-13] MEDS: Pravastatin Sodium 20 MG TAB PO SCH (20:24)
[2016-12-14] MEDS: Meropenem 1 GM in Sodium Chloride 0.9% 100 ML IVPB SCH ×3 (08:37→23:25)
[2016-12-14] MEDS: Docusate 100 MG CAP PO SCH ×2 (08:38→20:20)
[2016-12-14] MEDS: Furosemide 20 MG TAB PO SCH (08:38)
[2016-12-14] MEDS: Insulin NPH/Reg Insulin Hm 300 UNITS/3 ML VIAL SC SCH ×2 (08:38→17:22)
[2016-12-14] MEDS: Insulin Regular 300 UNITS/3 ML VIAL SC PRN (08:39)
[2016-12-14] MEDS: Triamcinolone 0.1% Cream 15 GM TUBE TOP SCH ×2 (08:39→20:22)
[2016-12-14] MEDS: Polyethylene Glycol 3350 17 GM Packet PO SCH (08:40)
[2016-12-14] MEDS: Fluticasone Propionate Nasal Spray 16 gm Bottle NASAL SCH (08:40)
[2016-12-14] MEDS: Brinzolamide 1% Ophth Soln 10 ml Bottle EA EYE SCH (08:41)
[2016-12-14] MEDS: Clotrimazole 1% Cream 15 GM TUBE TOP SCH (08:41)
[2016-12-14] MEDS: Acetaminophen 325 MG TAB PO PRN (08:47)
[2016-12-14] MEDS: Latanoprost 0.005% Ophth Soln 2.5 ml Bottle EA EYE SCH (20:19)
[2016-12-14] MEDS: Pravastatin Sodium 20 MG TAB PO SCH (20:19)
[2016-12-14] MEDS: Allopurinol 100 MG TAB PO SCH (20:19)
[2016-12-14] MEDS: Losartan Potassium 25 MG TAB PO SCH (20:20)
[2016-12-14] MEDS: Clopidogrel Bisulfate 75 MG TAB PO SCH (20:20)
[2016-12-15] MEDS: Polyethylene Glycol 3350 17 GM Packet PO SCH (08:14)
[2016-12-15] MEDS: Insulin Regular 300 UNITS/3 ML VIAL SC PRN (08:14)
[2016-12-15] MEDS: Meropenem 1 GM in Sodium Chloride 0.9% 100 ML IVPB SCH ×2 (08:14→16:34)
[2016-12-15] MEDS: Insulin NPH/Reg Insulin Hm 300 UNITS/3 ML VIAL SC SCH ×2 (08:14→16:45)
[2016-12-15] MEDS: Docusate 100 MG CAP PO SCH ×2 (08:15→20:21)
[2016-12-15] MEDS: Furosemide 20 MG TAB PO SCH (08:16)
[2016-12-15] MEDS: Brinzolamide 1% Ophth Soln 10 ml Bottle EA EYE SCH (08:16)
[2016-12-15] MEDS: Fluticasone Propionate Nasal Spray 16 gm Bottle NASAL SCH (08:17)
[2016-12-15] MEDS: Clotrimazole 1% Cream 15 GM TUBE TOP SCH (08:17)
[2016-12-15] MEDS: Triamcinolone 0.1% Cream 15 GM TUBE TOP SCH ×2 (08:18→20:27)
[2016-12-15] MEDS: Pravastatin Sodium 20 MG TAB PO SCH (20:20)
[2016-12-15] MEDS: Allopurinol 100 MG TAB PO SCH (20:20)
[2016-12-15] MEDS: Losartan Potassium 25 MG TAB PO SCH (20:22)
[2016-12-15] MEDS: Latanoprost 0.005% Ophth Soln 2.5 ml Bottle EA EYE SCH (20:23)
[2016-12-15] MEDS: Clopidogrel Bisulfate 75 MG TAB PO SCH (20:23)
[2016-12-16] MEDS: Meropenem 1 GM in Sodium Chloride 0.9% 100 ML IVPB SCH ×4 (00:14→23:50)
[2016-12-16] MEDS: Insulin NPH/Reg Insulin Hm 300 UNITS/3 ML VIAL SC SCH ×2 (07:53→16:35)
[2016-12-16] MEDS: Insulin Regular 300 UNITS/3 ML VIAL SC PRN ×3 (07:54→20:35)
[2016-12-16] MEDS: Polyethylene Glycol 3350 17 GM Packet PO SCH (09:41)
[2016-12-16] MEDS: Furosemide 20 MG TAB PO SCH (09:41)
[2016-12-16] MEDS: Brinzolamide 1% Ophth Soln 10 ml Bottle EA EYE SCH (09:41)
[2016-12-16] MEDS: Docusate 100 MG CAP PO SCH ×2 (09:42→20:32)
[2016-12-16] MEDS: Fluticasone Propionate Nasal Spray 16 gm Bottle NASAL SCH (09:42)
[2016-12-16] MEDS: Clotrimazole 1% Cream 15 GM TUBE TOP SCH (09:44)
[2016-12-16] MEDS: Triamcinolone 0.1% Cream 15 GM TUBE TOP SCH ×2 (09:45→20:35)
[2016-12-16 12:40] VITALS: BMI 25.5
[2016-12-16] MEDS: Clopidogrel Bisulfate 75 MG TAB PO SCH (20:31)
[2016-12-16] MEDS: Pravastatin Sodium 20 MG TAB PO SCH (20:32)
[2016-12-16] MEDS: Losartan Potassium 25 MG TAB PO SCH (20:32)
[2016-12-16] MEDS: Allopurinol 100 MG TAB PO SCH (20:33)
[2016-12-16] MEDS: Latanoprost 0.005% Ophth Soln 2.5 ml Bottle EA EYE SCH (20:34)
[2016-12-17] MEDS: Meropenem 1 GM in Sodium Chloride 0.9% 100 ML IVPB SCH ×2 (07:37→15:19)
[2016-12-17] MEDS: Insulin NPH/Reg Insulin Hm 300 UNITS/3 ML VIAL SC SCH (07:45)
[2016-12-17 08:48] VITALS: BP 150/76; TEMP 98.6
[2016-12-17] MEDS: Docusate 100 MG CAP PO SCH (09:19)
[2016-12-17] MEDS: Brinzolamide 1% Ophth Soln 10 ml Bottle EA EYE SCH (09:19)
[2016-12-17] MEDS: Clotrimazole 1% Cream 15 GM TUBE TOP SCH (09:20)
[2016-12-17] MEDS: Fluticasone Propionate Nasal Spray 16 gm Bottle NASAL SCH (09:20)
[2016-12-17] MEDS: Polyethylene Glycol 3350 17 GM Packet PO SCH (09:20)
[2016-12-17] MEDS: Furosemide 20 MG TAB PO SCH (09:20)
[2016-12-17] MEDS: Triamcinolone 0.1% Cream 15 GM TUBE TOP SCH (09:21)
[2016-12-17] MEDS: Insulin Regular 300 UNITS/3 ML VIAL SC PRN (12:12)
--- NOTE | 2016-12-18 02:21 | DIS ---
DATE OF ADMISSION: 11/09/2016 DATE OF DISCHARGE: 12/17/2016 PRIMARY CARE PHYSICIAN: Dr. Katelin Alarcon. DISCHARGING PHYSICIAN: Chely Terrazas M.D. DISCHARGE DIAGNOSES: 1. Left foot gangrene and osteomyelitis of the left foot. 2. Diabetic foot ulcer. 3. Physical debility. 4. Osteomyelitis of amputated big toe with wound vac. 5. Diabetes type 2, uncontrolled. 6. Gout. 7. Dyslipidemia. 8. Hypertension. 9. Atherosclerotic peripheral vascular disease with ulceration. 10. Chronic congestive heart failure. DISCHARGE MEDICATIONS: 1. Allopurinol 150 q.p.m. 2. Aspirin 81 daily. 3. Plavix 75 daily. 4. Furosemide 20 daily. 5. Humulin 70/30, 10 mg q.p.m., 20 q.a.m. 6. Cozaar 100 daily q.p.m. 7. Pravastatin 20 at bedtime. FOLLOWUP: Follow up with primary care physician within 1 week. Follow up with outpatient wound care Tuesday, Tuesday, Tuesday until discharge. ACTIVITY: Ad keny. MEDICATION COMPLIANCE: Reinforced. WOUND CARE: Tuesday, Tuesday, Tuesday at outpatient physical therapy, scheduled for 3-4 weeks. DIET: ADA diet. CODE STATUS: FULL CODE. HOSPITAL COURSE: Mr. Carrasco is a 76-year-old male with a past medical history of diabetes type 2, CHF, CAD, and hypertension. The patient was admitted to [facility] in [place] 10/28/2016-11/09/2016 for worsening appearance of his left great toe amputation site. He was followed by wound care and vascular surgeon, Dr. Madden and underwent an intraoperative debridement of his left foot and application of a wound VAC. Patient was seen by Dr. Lyon, who recommended IV meropenem 3 times a day for a total of 6 weeks. Patient was subsequently admitted here at [facility] for long-term IV antibiotics, wound VAC care, wound treatment and physical therapy. Patient successfully completed a course of IV meropenem, 3 times a day for a total of 5 weeks. He was afebrile throughout hospitalization and mental status was intact. While in extended stay, his white blood count upon discharge was 6.2, his hemoglobin 12.0, hematocrit 36.1. His wound healed nicely and was significantly smaller with surrounding granulation tissue. Patient during stay at [facility] went to [place] from the to for bariatric wound care treatments. He subsequently improved and patient did not require wound VAC in a longer by the end of October. We continued daily wound care treatments with Aquacel, Mepilex and wounds healed nicely. Patient's blood sugars were well controlled throughout hospital stay, his strength improved and learnt to walk by himself. Overall, the patient improved, but that was deemed appropriate to be discharged home with family. He denied home health services and wound care treatments were scheduled with outpatient therapy. The patient was discharged home in a stable condition with his . PICC line was discontinued. He was encouraged to follow up with his primary care doctor within the next 5-7 days. SHANTANU
== END 2016-12-17 14:45 | disposition home or self-care (01) | DRG 300 ==
LOC: MADMS 18:21
PROVIDERS: ADMIT Family Medicine; ATTEND Family Medicine
DX: E11.52 Type 2 diabetes mellitus with diabetic peripheral angiopathy with gangrene (principal); M86.8X7 Other osteomyelitis, ankle and foot; E11.65 Type 2 diabetes mellitus with hyperglycemia; E11.69 Type 2 diabetes mellitus with other specified complication; M10.9 Gout, unspecified; E78.5 Hyperlipidemia, unspecified; I10 Essential (primary) hypertension; I70.209 Unspecified atherosclerosis of native arteries of extremities, unspecified extremity; I50.9 Heart failure, unspecified; H40.9 Unspecified glaucoma
CPT/HCPCS: 36415; 36416; 80053; 85025; 85610; 85730; 97602; A4216; G8978-GP-CI; G8979-GP-CI; J1650; J1815; J2185; J7050; J7620

== ENCOUNTER 2017-11-15 16:54 | Emergency (ER) | payer MEDICARE, MEDICAID ==
[2017-11-15 18:02] LABS: #Basophils 0.1 thou/uL (0.0-0.2); #Eosinphils 0.2 thou/uL (0.0-0.7); #Lymphocytes 1.4 thou/uL (1.20-3.40); #Monocytes 0.5 thou/uL (0.11-0.59); #Neutrophils 3.8 thou/uL (1.40-6.50); %Basophils 0.9 % (0.0-1.0); %Eosinophils 2.6 % (0.0-10.0); %Lymphocytes 23.4 % (21.0-51.0); %Monocytes 9.1 % (0.0-10.0); Anisocytosis SLIGHT = 6-15 cells (100X) (0-5/hpf); Hemoglobin 10.2 g/dL (14.0-18.0); INR-International Normal Ratio 1.3; MDiff Complete? YES; Mean Corpuscular HGB CONC 31.7 g/dL (32.0-36.0); Mean Corpuscular Hemoglobin 27.8 pg (27.0-31.0); Mean Corpuscular Volume 87.7 fl (80.0-94.0); Mean Platelet Volume 7.4 fL (7.4-10.4); PTT 34.6 SEC (22.9-36.1); Platelet Count 191 thou/uL (130-400); Prothrombin Time 16.7 SEC (12.0-14.7); RBC Distribution Width 20.8 % (11.5-14.5); Red Blood Cell (RBC) Count 3.68 mill/uL (4.70-6.10); White Blood Cell (WBC) Count 5.9 thou/uL (4.8-10.8)
[2017-11-15 18:15] LABS: ALT (SGPT) 13 U/L (8-55); AST (SGOT) 25 U/L (5-34); Albumin 2.6 g/dL (3.4-4.8); Alkaline Phosphatase 224 U/L (40-150); Anion Gap 18 mmol/L (10-20); BUN (Urea Nitrogen) 35 mg/dL (8.4-25.7); CK (CPK) 60 U/L (30-200); CKMB 2.5 ng/mL (0-6.6); Calc. Creatinine Clearance 0 mL/min (70-130); Calcium 8.3 mg/dL (7.8-10.44); Carbon Dioxide 18 mmol/L (23-31); Chloride 108 mmol/L (98-107); Estimated GFR-MDRD 35; Globulin 3.9 g/dL (2.4-3.5); Glucose 213 mg/dL (83-110); Lipase 9 U/L (8-78); Magnesium 1.7 mg/dL (1.6-2.6); Potassium 4.7 mmol/L (3.5-5.1); Protein, Total 6.5 g/dL (5.8-8.1); Sodium 139 mmol/L (136-145); Troponin I 0.013 ng/mL (< 0.028)
--- NOTE | 2017-11-15 18:34 | RAD ---
PORTABLE CHEST 11/15/17 PROVIDED CLINICAL HISTORY: Cough. FINDINGS: No comparisons. The examination is rotated, limiting evaluation. There is conspicuous right basilar p leural and/or parenchymal opacity. The left lung appears grossly clear. Cardiac silhouette appears en larged but is largely obscured by right hemithoracic opacity. Median sternotomy changes are seen. The re is no evidence for pneumothorax. IMPRESSION: Conspicuous right basilar pleural and/or parenchymal opacity probably reflecting at least moderate if not large right pleural effusion with adjacent passive atelectasis. POS: [facility]
[2017-11-15 18:36] LABS: Bilirubin Negative (Negative); Blood, Urine Trace (Negative); Clarity Clear (Clear); Glucose, Urine (Dipstick) Negative (Negative); Leukocyte Negative (Negative); Nitrite Negative (Negative); Protein, Urine (Dipstick) Negative (Neg-Trace); Urobilinogen 0.2 mg/dL (0.2-1.0)
[2017-11-15 18:38] LABS: Bacteria/HPF Rare-Few HPF (None Seen); RBC/HPF 0-3 HPF (0-3); Squamous Epithelial 0-3 HPF (0-3); WBC/HPF None Seen HPF (0-3)
[2017-11-15] MEDS ORDERED: Furosemide 40 MG/4 ML VIAL ONE (19:55)
== END 2017-11-15 21:05 | disposition short-term general hospital (02) ==
LOC: MADERS 16:54
DX: E87.70 Fluid overload, unspecified (principal); N17.9 Acute kidney failure, unspecified; I50.9 Heart failure, unspecified; E11.9 Type 2 diabetes mellitus without complications; Z79.4 Long term (current) use of insulin; E78.5 Hyperlipidemia, unspecified; Z79.899 Other long term (current) drug therapy
CPT/HCPCS: 36415; 51702; 71010; 80053; 81003; 81015; 82550; 82553; 83605; 83690; 83735; 83880; 84484; 85025; 85610; 85730; 87040; 87086; 93005; 94760; 96374; J1940

== ENCOUNTER 2018-02-02 17:09 | Inpatient (IN) | payer MEDICARE, MEDICAID ==
[2018-02-02 20:48] VITALS: BMI 25.1
[2018-02-02] MEDS ORDERED: Pravastatin Sodium 20 MG TAB PO SCH (22:00)
[2018-02-02] MEDS ORDERED: Clopidogrel Bisulfate 75 MG TAB PO SCH (22:00)
[2018-02-02] MEDS ORDERED: Carvedilol 6.25 MG TAB PO SCH (22:00)
[2018-02-02] MEDS ORDERED: Famotidine 20 MG TAB PO SCH (22:00)
[2018-02-02] MEDS ORDERED: Allopurinol 100 MG TAB PO SCH (22:00)
[2018-02-03] MEDS: Furosemide 40 MG TAB PO SCH ×2 (05:06→14:09)
[2018-02-03] MEDS: Carvedilol 6.25 MG TAB PO SCH ×2 (08:27→21:19)
[2018-02-03] MEDS: Famotidine 20 MG TAB PO SCH ×2 (08:27→21:20)
[2018-02-03] MEDS: Losartan 25 MG TAB PO SCH (08:28)
[2018-02-03] MEDS ORDERED: Dextrose 50% Abboject 50 ML SYRINGE SLOW IVP PRN (08:42)
[2018-02-03] MEDS ORDERED: HumaLOG 300 UNITS/3 ML VIAL SC PRN (08:42)
[2018-02-03] MEDS ORDERED: Dextrose 5% in Water 1,000 ML IV PRN (08:42)
[2018-02-03] MEDS ORDERED: Lisinopril 5 MG TAB PO SCH (09:00)
[2018-02-03] MEDS ORDERED: Carvedilol 3.125 MG TAB PO SCH (09:00)
[2018-02-03] MEDS ORDERED: Furosemide 40 MG TAB PO SCH (09:00)
[2018-02-03] MEDS: Enoxaparin Sodium 30 MG/0.3 ML SYRINGE SC SCH (09:41)
[2018-02-03] MEDS: Docusate 100 MG CAP PO SCH ×2 (09:41→21:19)
[2018-02-03] MEDS: Ubidecarenone 50 MG CAP PO SCH (09:42)
[2018-02-03] MEDS: HumaLOG 300 UNITS/3 ML VIAL SC PRN ×3 (09:42→17:50)
--- NOTE | 2018-02-03 15:09 | RAD ---
KUB: HISTORY: Abdominal pain and constipation. FINDINGS: The bowel gas pattern appears nonobstructive. There is a surgical clip in the epigastric region. Th e film is somewhat underpenetrated. No radiopaque calculi are seen. There are phleboliths in the pe lvis and vascular calcifications. There appear to be some retained secretions within the stomach, wh ich is mildly distended. IMPRESSION: 1. No evidence of obstruction. 2. Suggestion of right-sided pleural effusion with right lower lobe atelectasis or infiltrate. POS: [facility]
--- NOTE | 2018-02-03 17:55 | HP ---
ADMITTING PHYSICIAN: Chely Terrazas M.D. 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 HISTORY OF PRESENT ILLNESS: Mr. Carrasco is a 77-year-old male with a medical history of systolic congestive heart failure with an EF of around 28%, chronic kidney disease stage 3, iron deficiency anemia, CAD, diabetes mellitus, hyperlipidemia, and peripheral vascular disease. The patient has been under the care of supplier specialist at [facility], Dr. Ortiz, for left lower foot diabetic wound that has failed multiple outpatient therapies. Due to this patient was sent to [facility] for [id number] amputation. The patient already has a right [id number] amputation with a prosthesis in place. During this, the patient was admitted to [facility] on 01/24/2018. He was started on IV antibiotics with vancomycin and Primaxin. The patient was on medicine for 2 days and underwent a left BKA on 01/26/2018. The patient continued on IV antibiotics for 6 more days, status post the amputation and since the source of the infection was already taken care of, the decision was made to stop IV antibiotics. Due to the patient living in his home with just his , and the recent surgery, the decision was made to transfer the patient for physical therapy and incision care prior to discharge back to his home. When I saw the patient today, he was very excited to be out of the hospital. He complains of constipation. He stated the last bowel movement was about 3 days ago and he had to receive an enema in the hospital as ordered medications were not helping. He denies any abdominal pain. Denies any pain to stump. Denies any fever. Denies any nausea or vomiting. He denies any palpitations. He states the last time he had to have an enema for the bowel movement. PAST MEDICAL HISTORY: Diabetes type 2, coronary artery bypass graft in 1994, hypertension, gout, hyperlipidemia and congestive heart failure. PAST SURGICAL HISTORY: Coronary artery bypass grafting x3, right below-the- knee amputation after a left hallux amputation on the right, cataract surgery and intraoperative debridement of the right heel. SOCIAL HISTORY: Positive for alcohol use about 12 years until about 10 years ago. Negative for tobacco or illicit drug use. ALLERGIES: AMOXICILLIN, CODEINE, NAPROXEN and LEVOFLOXACIN. FAMILY HISTORY: Significant for diabetes type 2 and coronary artery disease. MEDICATIONS: Aspirin 81 mg daily, Plavix 75 mg daily, Coreg 6.25 mg twice a day , allopurinol 100 mg at bedtime, Lasix 40 b.i.d., Levemir 60 units daily, lisinopril 5 mg daily, losartan 100 mg daily, pravastatin 40 mg at bedtime and famotidine 40 mg twice a day. REVIEW OF SYSTEMS: General: Denies fatigue or weakness. The patient denies fever. Eyes: Negative for pain, blurry vision or discharge. ENT: Negative for congestion, wheezing, cough, sore throat or ear pain. Cardiovascular: Denies pain or dyspnea. Respiratory: Denies cough, congestion or sputum production. Gastrointestinal: Complains of constipation. Denies vomiting, denies nausea, denies melena or hematochezia. Musculoskeletal: Complains of gait instability, status post amputation. Neurologic: Denies confusion, altered mental status change or headache. Psychiatric: Denies depression, hallucinations or anxiety. PHYSICAL EXAMINATION: VITAL SIGNS: Temperature 97.4, respirations 20, pulse 66, O2 sat 93% on room air and blood pressure 106/57. GENERAL: The patient is alert, awake and oriented x3, sitting up in bedside chair, in no apparent distress. HEENT: Pupils are equal, round and reactive to light. Poor dentition with multiple missing teeth. PERRLA. Normal. Moist oral mucous membrane. The patient is out of hearing. NECK: Supple, soft. No JVD, lymphadenopathy or thyroid nodules. LUNGS: Clear to auscultation bilaterally. No wheezing. HEART: S1 and S2, regular rhythm and rate. No murmurs or gallops. ABDOMEN: Hyperactive, distended and nontender. EXTREMITIES: Right below-knee amputation with prosthesis, left below-knee amputation with carolyn to incision sites. Dressing intact with some bloody drainage from the incision site and mild surrounding erythema. NEUROLOGY: The patient is out of hearing, especially to his left side. Alert, awake and oriented x3. No hallucinations or delusions. ASSESSMENT: 1. Debility. 2. Gait instability. 3. Status post left below-knee amputation due to diabetic wound and also had multiple failed outpatient treatment. 4. Diabetes type 2. 5. Gout. 6. Hypertension. 7. Congestive heart failure with ejection fraction of about 28%. 8. Chronic kidney disease stage 3. 9. Dyslipidemia. 10. Glaucoma. PLAN: The patient will be admitted to [facility] for skilled rehabilitation. We will consult PT, OT for strengthening, balance and gait training. We will consult occupational therapy to help with activities of daily living and assistive devices, and we will consult nutrition for diet management. We will change wound dressing to stump daily. The patient is to follow up with surgeon in 2 weeks. For his constipation, we will place patient on Colace b.i.d. We will follow up abdominal x-ray. For his diabetes, the patient on sliding scale and we will monitor his sugars a.c. and at bedtime. We will monitor the patient for any hemodynamic instability. We will restart the patient's home medication. Anticipated length of stay is about 4-6 weeks. DISPOSITION: The patient's destination upon discharge will be to his home with home health. CODE STATUS: The patient is a FULL CODE. MTDD
[2018-02-03] MEDS ORDERED: Fleet Enema 133 ML BOT FS SCH (18:15)
[2018-02-03] MEDS ORDERED: Pravastatin Sodium 20 MG TAB PO SCH (21:00)
[2018-02-03] MEDS ORDERED: Allopurinol 100 MG TAB PO SCH (21:00)
[2018-02-03] MEDS ORDERED: Clopidogrel Bisulfate 75 MG TAB PO SCH (21:00)
[2018-02-03] MEDS: Clopidogrel Bisulfate 75 MG TAB PO SCH (21:19)
[2018-02-03] MEDS: Allopurinol 100 MG TAB PO SCH (21:19)
[2018-02-03] MEDS: Pravastatin Sodium 20 MG TAB PO SCH (21:20)
[2018-02-04] MEDS: Furosemide 40 MG TAB PO SCH ×2 (05:08→14:15)
[2018-02-04] MEDS: Ondansetron ODT 4 MG TAB PO PRN ×2 (05:08→11:08)
[2018-02-04] MEDS: Losartan 25 MG TAB PO SCH (09:32)
[2018-02-04] MEDS: Carvedilol 6.25 MG TAB PO SCH ×2 (09:32→20:42)
[2018-02-04] MEDS: Ubidecarenone 50 MG CAP PO SCH (09:33)
[2018-02-04] MEDS: Famotidine 20 MG TAB PO SCH ×2 (09:33→20:41)
[2018-02-04] MEDS: Multivit, Therapeutic 1 TAB PO SCH (09:33)
[2018-02-04] MEDS: Docusate 100 MG CAP PO SCH ×2 (09:33→20:42)
[2018-02-04] MEDS: Enoxaparin Sodium 30 MG/0.3 ML SYRINGE SC SCH (09:33)
[2018-02-04] MEDS ORDERED: Lantiseptic Ointment 130 GM JAR TOP PRN (11:09)
[2018-02-04] MEDS ORDERED: Nystatin Cream 15 GM TUBE TOP PRN (11:10)
--- NOTE | 2018-02-04 12:15 | RAD ---
KUB: Date: 02/04/18 HISTORY: Abdominal pain and distention. FINDINGS: The bowel gas pattern appears nonobstructed. There is slightly distended stomach. There appear to be some retained secretions within the stomach. This is similar to the prior examination. The possibilit y of a bezoar should be considered. There are vascular calcifications noted. IMPRESSION: No acute findings. Stable exam. POS: [facility]
[2018-02-04] MEDS: Clopidogrel Bisulfate 75 MG TAB PO SCH (20:42)
[2018-02-04] MEDS: Allopurinol 100 MG TAB PO SCH (20:42)
[2018-02-04] MEDS: Pravastatin Sodium 20 MG TAB PO SCH (20:43)
[2018-02-04] MEDS: Nystatin Cream 15 GM TUBE TOP SCH (20:46)
[2018-02-04] MEDS: Lantiseptic Ointment 130 GM JAR TOP SCH (20:47)
[2018-02-05] MEDS: Furosemide 40 MG TAB PO SCH ×2 (06:10→13:35)
[2018-02-05] MEDS: Enoxaparin Sodium 30 MG/0.3 ML SYRINGE SC SCH (08:52)
[2018-02-05] MEDS: Docusate 100 MG CAP PO SCH ×2 (08:53→20:27)
[2018-02-05] MEDS: Carvedilol 6.25 MG TAB PO SCH ×2 (08:53→20:26)
[2018-02-05] MEDS: Multivit, Therapeutic 1 TAB PO SCH (08:53)
[2018-02-05] MEDS: Ubidecarenone 50 MG CAP PO SCH (08:53)
[2018-02-05] MEDS: Famotidine 20 MG TAB PO SCH ×2 (08:53→20:27)
[2018-02-05] MEDS: Losartan 25 MG TAB PO SCH (08:54)
[2018-02-05] MEDS: Lantiseptic Ointment 130 GM JAR TOP SCH ×2 (08:54→20:28)
[2018-02-05] MEDS: Nystatin Cream 15 GM TUBE TOP SCH ×2 (08:55→20:28)
[2018-02-05] MEDS: HumaLOG 300 UNITS/3 ML VIAL SC PRN ×2 (13:36→17:54)
[2018-02-05] MEDS: Acetaminophen 325 MG TAB PO PRN (20:25)
[2018-02-05] MEDS: Pravastatin Sodium 20 MG TAB PO SCH (20:26)
[2018-02-05] MEDS: Ondansetron ODT 4 MG TAB PO PRN (20:26)
[2018-02-05] MEDS: Clopidogrel Bisulfate 75 MG TAB PO SCH (20:26)
[2018-02-05] MEDS: Allopurinol 100 MG TAB PO SCH (20:27)
[2018-02-06] MEDS: Furosemide 40 MG TAB PO SCH ×2 (05:46→13:28)
[2018-02-06] MEDS: Carvedilol 6.25 MG TAB PO SCH ×2 (08:52→20:34)
[2018-02-06] MEDS: Famotidine 20 MG TAB PO SCH ×2 (08:53→20:34)
[2018-02-06] MEDS: Docusate 100 MG CAP PO SCH ×2 (08:53→20:35)
[2018-02-06] MEDS: Enoxaparin Sodium 30 MG/0.3 ML SYRINGE SC SCH (08:53)
[2018-02-06] MEDS: Losartan 25 MG TAB PO SCH (08:53)
[2018-02-06] MEDS: Ubidecarenone 50 MG CAP PO SCH (08:54)
[2018-02-06] MEDS: Multivit, Therapeutic 1 TAB PO SCH (08:54)
[2018-02-06] MEDS: HumaLOG 300 UNITS/3 ML VIAL SC PRN ×3 (08:54→17:30)
[2018-02-06] MEDS: Nystatin Cream 15 GM TUBE TOP SCH ×2 (08:55→20:35)
[2018-02-06] MEDS: Lantiseptic Ointment 130 GM JAR TOP SCH ×2 (08:55→20:35)
--- NOTE | 2018-02-06 14:47 | CT ---
CT ABDOMEN AND PELVIS NONCONTRAST: History: Flank pain. Distention. FINDINGS: No comparison. Bilateral pleural fluid is apparent at the lung bases with bibasilar atelectasis. Each renal collecting system, ureter, and urinary bladder are incompletely distended with no urinary trac t calcifications apparent. Lack of contrast limits evaluation for other abnormalities. There is prominent calcification througho ut the arterial structures. A moderate amount of free fluid throughout the abdomen and pelvis. Liver contour appears irregular. There are degenerative changes lumbar spine. IMPRESSION: 1. No CT evidence of urinary tract obstruction or calcification. 2. Bilateral pleural effusions. 3. Moderate ascites may be related to portal venous hypertension given the cirrhotic appearance of th e liver. 4. Atherosclerosis. POS: [facility]
[2018-02-06] MEDS: Pravastatin Sodium 20 MG TAB PO SCH (20:33)
[2018-02-06] MEDS: Ondansetron ODT 4 MG TAB PO PRN (20:34)
[2018-02-06] MEDS: Allopurinol 100 MG TAB PO SCH (20:34)
[2018-02-06] MEDS: Clopidogrel Bisulfate 75 MG TAB PO SCH (20:34)
[2018-02-07] MEDS: Furosemide 40 MG TAB PO SCH ×2 (05:14→14:34)
[2018-02-07] MEDS: Acetaminophen 325 MG TAB PO PRN (07:17)
[2018-02-07] MEDS: HumaLOG 300 UNITS/3 ML VIAL SC PRN ×3 (07:19→17:06)
[2018-02-07] MEDS: Enoxaparin Sodium 30 MG/0.3 ML SYRINGE SC SCH (08:10)
[2018-02-07] MEDS: Losartan 25 MG TAB PO SCH (08:11)
[2018-02-07] MEDS: Docusate 100 MG CAP PO SCH ×2 (08:11→20:49)
[2018-02-07] MEDS: Ubidecarenone 50 MG CAP PO SCH (08:11)
[2018-02-07] MEDS: Multivit, Therapeutic 1 TAB PO SCH (08:11)
[2018-02-07] MEDS: Famotidine 20 MG TAB PO SCH ×2 (08:11→20:49)
[2018-02-07] MEDS: Carvedilol 6.25 MG TAB PO SCH ×2 (08:12→20:49)
[2018-02-07] MEDS: Nystatin Cream 15 GM TUBE TOP SCH ×2 (08:12→20:50)
[2018-02-07] MEDS: Lantiseptic Ointment 130 GM JAR TOP SCH ×2 (08:12→20:50)
[2018-02-07 09:00] LABS: #Basophils 0.1 thou/uL (0.0-0.2); #Eosinphils 0.6 thou/uL (0.0-0.7); #Lymphocytes 1.3 thou/uL (1.20-3.40); #Monocytes 0.7 thou/uL (0.11-0.59); #Neutrophils 5.5 thou/uL (1.40-6.50); %Basophils 0.8 % (0.0-1.0); %Eosinophils 7.8 % (0.0-10.0); %Lymphocytes 15.3 % (21.0-51.0); %Monocytes 8.7 % (0.0-10.0); %Neutrophils 67.5 % (42.0-75.0); Hemoglobin 8.8 g/dL (14.0-18.0); Mean Corpuscular HGB CONC 32.9 g/dL (32.0-36.0); Mean Corpuscular Hemoglobin 29.7 pg (27.0-31.0); Mean Corpuscular Volume 90.3 fl (80.0-94.0); Mean Platelet Volume 5.8 fL (7.4-10.4); Platelet Count 239 thou/uL (130-400); RBC Distribution Width 14.4 % (11.5-14.5); Red Blood Cell (RBC) Count 2.97 mill/uL (4.70-6.10); White Blood Cell (WBC) Count 8.2 thou/uL (4.8-10.8)
[2018-02-07] MEDS ORDERED: Iopamidol 370 76% 100 ML VIAL ONE (09:25)
[2018-02-07 10:05] LABS: ALT (SGPT) 9 U/L (8-55); AST (SGOT) 18 U/L (5-34); Albumin 2.6 g/dL (3.4-4.8); Alkaline Phosphatase 182 U/L (40-150); Anion Gap 14 mmol/L (10-20); BUN (Urea Nitrogen) 81 mg/dL (8.4-25.7); Bilirubin, Total 0.5 mg/dL (0.2-1.2); Calc. Creatinine Clearance 38 mL/min (70-130); Calcium 8.2 mg/dL (7.8-10.44); Carbon Dioxide 22 mmol/L (23-31); Chloride 104 mmol/L (98-107); Estimated GFR-MDRD 34; Globulin 3.3 g/dL (2.4-3.5); Glucose 221 mg/dL (83-110); Potassium 4.3 mmol/L (3.5-5.1); Protein, Total 5.9 g/dL (5.8-8.1); Sodium 136 mmol/L (136-145)
--- NOTE | 2018-02-07 15:46 | CT ---
ABDOMEN AND PELVIC CT SCAN WITH IV CONTRAST 02/07/18 COMPARISON: 02/06/18 noncontrast study. HISTORY: Abdominal pain and distention for five days. Again noted is a large right pleural effusion and somewhat smaller left pleural effusion with some pa renchymal changes in the right lower lobe, evidence for some lower lobe and possibly some mid lobe at electasis as well as some minimal left lower lobe atelectasis. The liver has a somewhat nodular conto ur raising concern for the possibility of cirrhosis. There is a very small contracted, somewhat poorl y defined gallbladder. There is very extensive ascites again noted. No evidence for renal calculus or acute obstruction. Small periumbilical fat containing hernia. Evidence for diffuse anasarca which appears to be more marked than on yesterday's study. Generalized multilevel lumbar spine stenosis. IMPRESSION: Stable bilateral pleural effusions and bibasilar parenchymal changes. Stable ascites. Somewhat nodula r liver contour concerning for the possibility of cirrhosis. Borderline splenomegaly. Worsening anasa rca. Small contracted gallbladder. Small fat containing paraumbilical hernia. Other findings as above . POS: [facility]
[2018-02-07] MEDS: Clopidogrel Bisulfate 75 MG TAB PO SCH (20:48)
[2018-02-07] MEDS: Ondansetron ODT 4 MG TAB PO PRN (20:48)
[2018-02-07] MEDS: Pravastatin Sodium 20 MG TAB PO SCH (20:49)
[2018-02-07] MEDS: Allopurinol 100 MG TAB PO SCH (20:49)
[2018-02-08] MEDS: Furosemide 40 MG TAB PO SCH ×2 (05:21→13:27)
[2018-02-08] MEDS: Multivit, Therapeutic 1 TAB PO SCH (08:11)
[2018-02-08] MEDS: Docusate 100 MG CAP PO SCH ×2 (08:11→20:14)
[2018-02-08] MEDS: Carvedilol 6.25 MG TAB PO SCH ×2 (08:11→20:10)
[2018-02-08] MEDS: Losartan 25 MG TAB PO SCH (08:11)
[2018-02-08] MEDS: Ubidecarenone 50 MG CAP PO SCH (08:12)
[2018-02-08] MEDS: Famotidine 20 MG TAB PO SCH ×2 (08:12→20:14)
[2018-02-08] MEDS: Enoxaparin Sodium 30 MG/0.3 ML SYRINGE SC SCH (08:12)
[2018-02-08] MEDS: Lantiseptic Ointment 130 GM JAR TOP SCH ×2 (08:17→20:11)
[2018-02-08] MEDS: Nystatin Cream 15 GM TUBE TOP SCH ×2 (08:17→20:12)
[2018-02-08] MEDS: HumaLOG 300 UNITS/3 ML VIAL SC PRN (13:14)
[2018-02-08] MEDS: Acetaminophen 325 MG TAB PO PRN (13:26)
[2018-02-08] MEDS: Clopidogrel Bisulfate 75 MG TAB PO SCH (20:10)
[2018-02-08] MEDS: Pravastatin Sodium 20 MG TAB PO SCH (20:10)
[2018-02-08] MEDS: Allopurinol 100 MG TAB PO SCH (20:11)
[2018-02-09 03:26] VITALS: BP 120/56; TEMP 97.9
== END 2018-02-08 23:20 | disposition short-term general hospital (02) | DRG 560 ==
LOC: MADMS 18:52
PROVIDERS: ADMIT Family Medicine; ATTEND Family Medicine
DX: Z47.81 Encounter for orthopedic aftercare following surgical amputation (principal); J90 Pleural effusion, not elsewhere classified; E11.22 Type 2 diabetes mellitus with diabetic chronic kidney disease; I50.20 Unspecified systolic (congestive) heart failure; I13.0 Hypertensive heart and chronic kidney disease with heart failure and stage 1 through stage 4 chronic kidney disease, or unspecified chronic kidney disease; E11.9 Type 2 diabetes mellitus without complications; R53.1 Weakness; R53.81 Other malaise; Z89.512 Acquired absence of left leg below knee; Z89.511 Acquired absence of right leg below knee; K59.00 Constipation, unspecified; I70.209 Unspecified atherosclerosis of native arteries of extremities, unspecified extremity; I25.10 Atherosclerotic heart disease of native coronary artery without angina pectoris; E78.5 Hyperlipidemia, unspecified; Z95.1 Presence of aortocoronary bypass graft; N18.3 Chronic kidney disease, stage 3 (moderate); H40.9 Unspecified glaucoma
CPT/HCPCS: 36416; 74018; 74176; 74177; 80053; 85025; 36415-59; G8978-GP-CM; G8979-GP-CJ; J1650; Q0162

== ENCOUNTER 2018-02-13 19:47 | Inpatient (IN) | payer MEDICARE, MEDICAID ==
[2018-02-13] MEDS ORDERED: risperiDONE 0.5 MG TAB PO SCH (21:15)
[2018-02-13] MEDS ORDERED: Ondansetron ODT 4 MG TAB PO PRN (22:26)
[2018-02-13] MEDS ORDERED: Carvedilol 6.25 MG TAB PO SCH (22:45)
[2018-02-13] MEDS ORDERED: Clopidogrel Bisulfate 75 MG TAB PO SCH (22:45)
[2018-02-13] MEDS ORDERED: Heparin 5,000 UNITS/ML VIAL SC SCH (22:45)
[2018-02-13] MEDS ORDERED: Docusate 100 MG CAP PO SCH (22:45)
[2018-02-13] MEDS ORDERED: Atorvastatin Calcium 10 MG TAB PO SCH (23:00)
[2018-02-13] MEDS: Nystatin Ointment 15 GM TUBE TOP SCH (23:53)
[2018-02-13] MEDS: Lantiseptic Ointment 130 GM JAR TOP PRN (23:54)
[2018-02-14] MEDS ORDERED: Spironolactone 25 MG TAB PO SCH (08:00)
[2018-02-14] MEDS: Carvedilol 6.25 MG TAB PO SCH ×2 (08:18→16:57)
[2018-02-14] MEDS: Furosemide 40 MG TAB PO SCH (08:18)
[2018-02-14] MEDS: Spironolactone 25 MG TAB PO SCH (08:18)
[2018-02-14] MEDS: Docusate 100 MG CAP PO SCH ×2 (08:19→21:03)
[2018-02-14] MEDS: Heparin 5,000 UNITS/ML VIAL SC SCH ×2 (08:19→15:41)
[2018-02-14] MEDS: Nystatin Ointment 15 GM TUBE TOP SCH ×2 (08:22→21:04)
[2018-02-14] MEDS ORDERED: Docusate 100 MG CAP PO SCH (09:00)
[2018-02-14] MEDS ORDERED: Carvedilol 6.25 MG TAB PO SCH (09:00)
[2018-02-14] MEDS ORDERED: Dextrose 50% Abboject 50 ML SYRINGE IVP PRN (18:13)
[2018-02-14] MEDS ORDERED: Dextrose 5% in Water 1,000 ML IV PRN (18:13)
--- NOTE | 2018-02-14 20:41 | HP ---
DATE OF ADMISSION: 02/13/2018 ADMITTING PHYSICIAN: Chely Terrazas M.D. REASON FOR ADMISSION: Extended stay at [facility] for skilled rehabilitation secondary to physical disability, status post left BKA on 2017 and status post paracentesis due to ascites. HISTORY OF PRESENT ILLNESS: Mr. Carrasco is a very pleasant 77-year-old male with a past medical history of CHF with an EF of 28%, CKD stage 3 , iron deficiency anemia, diabetes type 2, CAD, hyperlipidemia, peripheral vascular disease, who was admitted to [facility] on 02/02/2018 to 02/09/2018. The patient was initially admitted for rehabilitation status post left BKA, but due to increasing abnormal gait and abdominal pain, the patient was subsequently transferred to [facility] in [place] for higher level of care. The patient was admitted in [place] on 02/09/2018 to 02/13/2018. He underwent paracentesis on 02/10/2018 and 2.8 liters of yellow hazy fluid was removed. The patient was noted to have anemia with a positive occult blood in the stool. GI saw patient and recommended outpatient EGD. The patient was started on Omnicef and Flagyl for 7 days for prophylaxis for SBP. The patient was initially treated with Lasix 40 b.i.d. but on discharge was changed to 40 daily. The patient was subsequently transferred back to [facility] to continue physical therapy prior to discharge back to his home. When I saw the patient today, he was excited to be back to facility. He states abdominal pain now resolved and abnormal gait much better. He states he does have an appointment with his orthopedic doctor that was set for today initially, but his had cancelled it and now he would have followup appointment status post left BKA on 02/16/2018. He denies any pain. Denies any nausea or vomiting. Denies any constipation. Denies any fever. PAST MEDICAL HISTORY: Hypertension, gout, hyperlipidemia, CHF, diabetes type 2 , CAD with graft in 1994. PAST SURGICAL HISTORY: CAD grafting x3, right below-knee amputation, left below -the-knee amputation, cataract surgery, intraoperative debridement of the right heel, now paracenteses. SOCIAL HISTORY: Positive for alcohol use x12 years until about 10 years ago. Negative for tobacco or illicit drug use. ALLERGIES: AMOXICILLIN, CODEINE, NAPROXEN, LEVOFLOXACIN. FAMILY HISTORY: Significant for CAD and type 2 diabetes. MEDICATIONS: Aspirin 81 mg, allopurinol 100 at bedtime, Coreg 6.25 b.i.d., Omnicef 300 b.i.d. x7 days, Plavix 75 q.a.m., Colace 100 b.i.d., Pepcid 20 b.i.d., Lasix 40 daily, Flagyl 500 t.i.d. x7 days, Humalog sliding scale, losartan 100 every day, Pravachol 40 at bedtime. REVIEW OF SYSTEMS: GENERAL: Denies fatigue or weakness. Denies fever. EYES: Negative for blurry vision or discharge in eyes. ENT: Negative for congestion, wheezing, cough, ear pain. CARDIOVASCULAR: Denies dyspnea or orthopnea. RESPIRATORY: Denies cough or congestion. GASTROINTESTINAL: Denies abdominal pain, constipation, nausea, vomiting or diarrhea. MUSCULOSKELETAL: Complains of gait instability, status post amputation. NEUROLOGIC: Denies confusion, headaches, altered mental status. PSYCHIATRIC: Denies depression or hallucination. PHYSICAL EXAMINATION: VITAL SIGNS: Temperature 99.6, pulse 63, respirations 20, O2 sat 92% on room air, blood pressure 122/58. GENERAL APPEARANCE: Alert, awake, oriented x3, sitting in wheelchair, no apparent distress. HEENT: Pupils equal, round, reactive to light. Poor dentition. PERRLA. Normal moist oral mucous membrane. The patient is hard of hearing. NECK: Soft, supple, no JVD, no lymphadenopathy. LUNGS: Clear to auscultation bilaterally. HEART: S1 and S2. No murmurs or gallops. ABDOMEN: Positive bowel sounds, soft, nontender, nondistended. EXTREMITIES: The patient does have bilateral below knee amputation, right with prostheses, left with incision with carolyn intact, dressing intact. No drainage. No erythema. NEUROLOGICAL: The patient is hard of hearing, especially to the left. No hallucinations, no delusions. ASSESSMENT: 1. Gait instability. 2. Status post left below knee amputation. 3. New onset ascites, most likely cardiac related. 4. Acute on chronic kidney disease. 5. Liver cirrhosis found on CAT scan. 6. Chronic iron deficiency anemia now with positive guaiac. PLAN: The patient will be admitted to [facility] swing bed for rehabilitation. We will consult PT, OT for strengthening and strengthening of gait. We will consult PT to help with balance. We will consult OT to help with activities of daily living and assistive devices. We will change once to stump daily. The patient to follow up with orthopedic surgeon on 02/16/2018. We will place the patient on sliding scale for his Accu-Cheks a.c. and at bedtime. We will monitor for any hemodynamic instability. We will restart home medications. Length of stay is 12 days. DISPOSITION: The patient's destination upon discharge will be to his home. CODE STATUS: FULL CODE. MTDD
[2018-02-14] MEDS: HumaLOG 300 UNITS/3 ML VIAL SC PRN (21:01)
[2018-02-14] MEDS: Clopidogrel Bisulfate 75 MG TAB PO SCH (21:03)
[2018-02-14] MEDS: Atorvastatin Calcium 10 MG TAB PO SCH (21:03)
[2018-02-14] MEDS: metroNIDAZOLE 250 MG TAB PO SCH (21:03)
[2018-02-14] MEDS: Cefdinir 300 MG CAP PO SCH (21:03)
[2018-02-14] MEDS: Lantiseptic Ointment 130 GM JAR TOP PRN (21:04)
[2018-02-15] MEDS: Nystatin Ointment 15 GM TUBE TOP SCH ×3 (08:00→20:57)
[2018-02-15] MEDS: Docusate 100 MG CAP PO SCH ×2 (08:04→20:56)
[2018-02-15] MEDS: Furosemide 40 MG TAB PO SCH (08:04)
[2018-02-15] MEDS: Spironolactone 25 MG TAB PO SCH (08:04)
[2018-02-15] MEDS: Carvedilol 6.25 MG TAB PO SCH ×2 (08:04→17:21)
[2018-02-15] MEDS: metroNIDAZOLE 250 MG TAB PO SCH ×3 (08:04→20:57)
[2018-02-15] MEDS: Cefdinir 300 MG CAP PO SCH ×2 (08:05→20:56)
[2018-02-15] MEDS: HumaLOG 300 UNITS/3 ML VIAL SC PRN ×4 (08:06→19:59)
[2018-02-15] MEDS: Acetaminophen 325 MG TAB PO PRN (14:34)
[2018-02-15] MEDS: Clopidogrel Bisulfate 75 MG TAB PO SCH (20:56)
[2018-02-15] MEDS: Atorvastatin Calcium 10 MG TAB PO SCH (20:56)
[2018-02-16] MEDS: Docusate 100 MG CAP PO SCH ×2 (08:34→20:41)
[2018-02-16] MEDS: Spironolactone 25 MG TAB PO SCH (08:34)
[2018-02-16] MEDS: Cefdinir 300 MG CAP PO SCH ×2 (08:34→20:41)
[2018-02-16] MEDS: HumaLOG 300 UNITS/3 ML VIAL SC PRN ×2 (08:34→17:13)
[2018-02-16] MEDS: metroNIDAZOLE 250 MG TAB PO SCH ×3 (08:35→20:41)
[2018-02-16] MEDS: Nystatin Ointment 15 GM TUBE TOP SCH ×2 (08:35→20:42)
[2018-02-16] MEDS: Furosemide 40 MG TAB PO SCH (08:35)
[2018-02-16] MEDS: Carvedilol 6.25 MG TAB PO SCH ×2 (08:35→16:08)
[2018-02-16] MEDS: Acetaminophen 325 MG TAB PO PRN (08:39)
[2018-02-16] MEDS: Clopidogrel Bisulfate 75 MG TAB PO SCH (20:41)
[2018-02-16] MEDS: Atorvastatin Calcium 10 MG TAB PO SCH (20:41)
[2018-02-17] MEDS: Spironolactone 25 MG TAB PO SCH (07:40)
[2018-02-17] MEDS: Carvedilol 6.25 MG TAB PO SCH ×2 (07:40→16:31)
[2018-02-17] MEDS: Furosemide 40 MG TAB PO SCH (09:00)
[2018-02-17] MEDS: Docusate 100 MG CAP PO SCH ×2 (09:00→20:00)
[2018-02-17] MEDS: Cefdinir 300 MG CAP PO SCH ×2 (09:00→19:59)
[2018-02-17] MEDS: metroNIDAZOLE 250 MG TAB PO SCH ×3 (09:01→19:59)
[2018-02-17] MEDS: Nystatin Ointment 15 GM TUBE TOP SCH ×2 (09:07→20:00)
[2018-02-17] MEDS: HumaLOG 300 UNITS/3 ML VIAL SC PRN ×2 (13:26→16:34)
[2018-02-17] MEDS: Clopidogrel Bisulfate 75 MG TAB PO SCH (19:59)
[2018-02-17] MEDS: Atorvastatin Calcium 10 MG TAB PO SCH (20:00)
[2018-02-18] MEDS: Acetaminophen 325 MG TAB PO PRN ×2 (01:29→15:11)
[2018-02-18] MEDS: metroNIDAZOLE 250 MG TAB PO SCH ×3 (09:33→20:03)
[2018-02-18] MEDS: Cefdinir 300 MG CAP PO SCH ×2 (09:33→20:03)
[2018-02-18] MEDS: Docusate 100 MG CAP PO SCH ×2 (09:34→20:03)
[2018-02-18] MEDS: Spironolactone 25 MG TAB PO SCH (09:34)
[2018-02-18] MEDS: Carvedilol 6.25 MG TAB PO SCH ×2 (09:34→17:20)
[2018-02-18] MEDS: Furosemide 40 MG TAB PO SCH (09:34)
[2018-02-18] MEDS: Nystatin Ointment 15 GM TUBE TOP SCH ×2 (09:35→20:04)
[2018-02-18] MEDS: HumaLOG 300 UNITS/3 ML VIAL SC PRN ×3 (12:54→20:02)
[2018-02-18] MEDS: Atorvastatin Calcium 10 MG TAB PO SCH (20:03)
[2018-02-18] MEDS: Clopidogrel Bisulfate 75 MG TAB PO SCH (20:03)
[2018-02-19] MEDS: Spironolactone 25 MG TAB PO SCH (08:18)
[2018-02-19] MEDS: metroNIDAZOLE 250 MG TAB PO SCH ×3 (08:19→20:39)
[2018-02-19] MEDS: Furosemide 40 MG TAB PO SCH (08:19)
[2018-02-19] MEDS: Carvedilol 6.25 MG TAB PO SCH ×2 (08:19→17:15)
[2018-02-19] MEDS: Cefdinir 300 MG CAP PO SCH ×2 (08:19→20:39)
[2018-02-19] MEDS: Docusate 100 MG CAP PO SCH ×3 (08:20→20:40)
[2018-02-19] MEDS: Nystatin Ointment 15 GM TUBE TOP SCH ×2 (08:20→20:42)
[2018-02-19] MEDS: HumaLOG 300 UNITS/3 ML VIAL SC PRN ×2 (13:11→18:32)
[2018-02-19] MEDS: Clopidogrel Bisulfate 75 MG TAB PO SCH (20:40)
[2018-02-19] MEDS: Atorvastatin Calcium 10 MG TAB PO SCH (20:41)
[2018-02-20] MEDS: Acetaminophen 325 MG TAB PO PRN (06:53)
[2018-02-20] MEDS: Spironolactone 25 MG TAB PO SCH (07:01)
[2018-02-20] MEDS: Carvedilol 6.25 MG TAB PO SCH ×2 (07:02→16:56)
[2018-02-20] MEDS: Furosemide 40 MG TAB PO SCH (08:26)
[2018-02-20] MEDS: metroNIDAZOLE 250 MG TAB PO SCH ×3 (08:27→20:13)
[2018-02-20] MEDS: Docusate 100 MG CAP PO SCH ×2 (08:27→20:13)
[2018-02-20] MEDS: Cefdinir 300 MG CAP PO SCH ×2 (08:27→20:12)
[2018-02-20] MEDS: Nystatin Ointment 15 GM TUBE TOP SCH ×2 (08:28→20:14)
[2018-02-20] MEDS: HumaLOG 300 UNITS/3 ML VIAL SC PRN ×2 (13:05→17:55)
[2018-02-20] MEDS ORDERED: Mag-Al 1200 mg/1200 mg/30 ML UDCUP PO PRN (17:42)
[2018-02-20] MEDS: Ketoconazole 2% Cream 15 gm Tube TOP SCH (17:54)
[2018-02-20 19:43] VITALS: TEMP 98.2
[2018-02-20] MEDS: Clopidogrel Bisulfate 75 MG TAB PO SCH (20:12)
[2018-02-20] MEDS: Atorvastatin Calcium 10 MG TAB PO SCH (20:12)
[2018-02-20 22:52] VITALS: BMI 28.3
[2018-02-21 07:08] VITALS: BP 119/57
[2018-02-21] MEDS: Docusate 100 MG CAP PO SCH (08:27)
[2018-02-21] MEDS: metroNIDAZOLE 250 MG TAB PO SCH ×2 (08:27→08:28)
[2018-02-21] MEDS: Furosemide 40 MG TAB PO SCH (08:27)
[2018-02-21] MEDS: Spironolactone 25 MG TAB PO SCH (08:27)
[2018-02-21] MEDS: Cefdinir 300 MG CAP PO SCH (08:28)
[2018-02-21] MEDS: Nystatin Ointment 15 GM TUBE TOP SCH (08:28)
[2018-02-21] MEDS: Ketoconazole 2% Cream 15 gm Tube TOP SCH (08:28)
[2018-02-21] MEDS: Carvedilol 6.25 MG TAB PO SCH (08:28)
--- NOTE | 2018-02-21 13:33 | DIS ---
DATE OF ADMISSION: 02/13/2018 DATE OF DISCHARGE: 02/21/2018 DISCHARGING PHYSICIAN: Chely Terrazas M.D. PRIMARY CARE PHYSICIAN: Dr. Katelin Alarcon. FINAL DIAGNOSES: 1. Gait instability. 2. Status post left below knee amputation. 3. New onset ascites. 4. Liver cirrhosis. 5. Chronic iron deficiency anemia. 6. Acute on chronic kidney failure, resolved. DISCHARGE MEDICATIONS: Aspirin 81 mg daily, allopurinol 100 at bedtime, Coreg 6.25 b.i.d., Plavix 75 daily, Colace 100 b.i.d., Pepcid 20 daily, Lasix 40 daily , losartan 100 daily, Pravachol 40 at bedtime, spironolactone 100 p.o. daily. DISCHARGE INSTRUCTIONS: Follow up with PCP within 3-7 days. Follow up with orthopedic doctor as planned. Transfer with assistance at all times. Fall precautions. Diabetic diet. BRIEF HOSPITAL COURSE: Mr. Carrasco is a 77-year-old male, who was admitted 02/13/2018 for physical therapy prior to discharge to his home, he is status post left BKA, which was done 01/26/2018. He was initially in for therapy from 02/02-02/09, but developed severe ascites and needed paracentesis which he was transferred to [facility]. The patient is now status post paracenteses and his abdominal ascites is resolved. During hospitalization here , the patient participated in physical therapy and progressed nicely. Unfortunately, he does have a very non-cooperative at home and his home situation is not the best, but patient declined going to a jail and states he would be able to care for himself with the help of his and a neighbor in his home. The patient participated in exercises, sit to stand from bed. He is max assist and was advised to come in for education and teaching, but unfortunately she never showed up for this. He had seen orthopedic doctor on 02/16/2018 and they took out his carolyn and his incision was healing nicely. The patient was discharged back to his home in a stable condition via the ambulance. He was advised to follow up with his orthopedic doctor and follow up with his primary care doctor. CODE STATUS: FULL CODE. DISCHARGE VITAL SIGNS: Temperature 98.2, pulse 68, respirations 22, O2 sat 93% on room air, blood pressure 119/57. MTDD
== END 2018-02-21 12:20 | disposition home or self-care (01) | DRG 948 ==
LOC: MADMS 19:47
PROVIDERS: ADMIT Family Medicine; ATTEND Family Medicine
DX: R53.1 Weakness (principal); N17.9 Acute kidney failure, unspecified; E11.22 Type 2 diabetes mellitus with diabetic chronic kidney disease; E11.42 Type 2 diabetes mellitus with diabetic polyneuropathy; I13.0 Hypertensive heart and chronic kidney disease with heart failure and stage 1 through stage 4 chronic kidney disease, or unspecified chronic kidney disease; N18.3 Chronic kidney disease, stage 3 (moderate); D50.9 Iron deficiency anemia, unspecified; I25.10 Atherosclerotic heart disease of native coronary artery without angina pectoris; E78.5 Hyperlipidemia, unspecified; Z89.512 Acquired absence of left leg below knee; M10.9 Gout, unspecified; Z89.511 Acquired absence of right leg below knee; Z88.6 Allergy status to analgesic agent; Z88.1 Allergy status to other antibiotic agents; Z88.5 Allergy status to narcotic agent; Z79.01 Long term (current) use of anticoagulants; Z79.82 Long term (current) use of aspirin; Z79.4 Long term (current) use of insulin; K74.60 Unspecified cirrhosis of liver; I50.9 Heart failure, unspecified
CPT/HCPCS: 36416; G8978-GP-CL; G8979-GP-CJ; J1644

== ENCOUNTER 2018-09-15 14:06 | Emergency (ER) | payer MEDICARE, MEDICAID ==
[2018-09-15 15:12] LABS: #Eosinphils 0.1 thou/uL (0.0-0.7); #Lymphocytes 0.7 thou/uL (1.20-3.40); #Monocytes 0.3 thou/uL (0.11-0.59); #Neutrophils 4.5 thou/uL (1.40-6.50); %Basophils 0.6 % (0.0-1.0); %Eosinophils 1.6 % (0.0-10.0); %Lymphocytes 12.1 % (21.0-51.0); %Monocytes 5.9 % (0.0-10.0); %Neutrophils 79.8 % (42.0-75.0); Hemoglobin 10.2 g/dL (14.0-18.0); Mean Corpuscular HGB CONC 33.2 g/dL (32.0-36.0); Mean Corpuscular Hemoglobin 30.5 pg (27.0-31.0); Mean Corpuscular Volume 91.8 fL (78.0-98.0); Mean Platelet Volume 6.4 fL (7.4-10.4); Platelet Count 143 thou/uL (130-400); RBC Distribution Width 12.6 % (11.5-14.5); Red Blood Cell (RBC) Count 3.36 mill/uL (4.70-6.10); White Blood Cell (WBC) Count 5.7 thou/uL (4.8-10.8)
[2018-09-15 15:19] LABS: INR-International Normal Ratio 1.2; PTT 28.3 SEC (22.9-36.1); Prothrombin Time 15.2 SEC (12.0-14.7)
[2018-09-15 15:29] LABS: ALT (SGPT) 14 U/L (8-55); AST (SGOT) 13 U/L (5-34); Albumin 3.4 g/dL (3.4-4.8); Alkaline Phosphatase 136 U/L (40-150); Anion Gap 14 mmol/L (10-20); BUN (Urea Nitrogen) 35 mg/dL (8.4-25.7); Bilirubin, Total 0.5 mg/dL (0.2-1.2); Calc. Creatinine Clearance 0 mL/min (70-130); Carbon Dioxide 22 mmol/L (23-31); Chloride 104 mmol/L (98-107); Estimated GFR-MDRD 35; Glucose 539 mg/dL (83-110); Potassium 5.1 mmol/L (3.5-5.1); Protein, Total 6.4 g/dL (5.8-8.1); Sodium 135 mmol/L (136-145)
[2018-09-15] MEDS ORDERED: cefTRIAXone\\ROCEPHIN 1 GM VIAL ONE (15:38)
[2018-09-15] MEDS ORDERED: Insulin Regular 300 UNITS/3 ML VIAL ONE (15:38)
== END 2018-09-15 17:32 | disposition home or self-care (01) ==
LOC: MADERS 14:06
DX: E11.65 Type 2 diabetes mellitus with hyperglycemia (principal); L03.116 Cellulitis of left lower limb; E78.5 Hyperlipidemia, unspecified; M10.9 Gout, unspecified; I13.0 Hypertensive heart and chronic kidney disease with heart failure and stage 1 through stage 4 chronic kidney disease, or unspecified chronic kidney disease; I50.9 Heart failure, unspecified; N18.3 Chronic kidney disease, stage 3 (moderate); Z79.891 Long term (current) use of opiate analgesic; Z79.899 Other long term (current) drug therapy
CPT/HCPCS: 36415; 36416; 80053; 85025; 85610; 85730; 96365; 96375; J0696; J1815; J7050

== ENCOUNTER 2019-05-15 14:49 | Emergency (ER) | payer MEDICARE, MEDICAID ==
--- NOTE | 2019-05-15 15:49 | RAD ---
LEFT LEG 2 VIEWS: HISTORY: Prosthetic left leg pain, open wound. FINDINGS: There are postop changes of [id number] amputation. No acute fracture, dislocation, bony destructi on or periosteal reaction is seen. There are vascular calcifications. Degenerative changes are seen in the left knee joint. Chondrocalcinosis present.
--- NOTE | 2019-05-15 15:52 | RAD ---
Exam: XR Tib Fib Rt Leg 2 View HISTORY: Prosthetic leg pain. COMPARISON: None FINDINGS: There is evidence of a [id number] amputation. Surgical clips are seen overlying the right lower e xtremity. Vascular calcifications are seen. Calcifications are seen in the medial and lateral joint compartments of the knee related to chondrocalcinosis. A superior patellar enthesophyte is noted. No acute fracture, dislocation, or other acute osseous abnormality is identified. IMPRESSION: Right lower extremity [id number] amputation without evidence of an acute osseous abnormality.
[2019-05-15 16:05] LABS: #Eosinphils 0.1 thou/uL (0.0-0.7); #Lymphocytes 0.8 thou/uL (1.20-3.40); #Monocytes 0.3 thou/uL (0.11-0.59); #Neutrophils 3.2 thou/uL (1.40-6.50); %Basophils 1.1 % (0.0-1.0); %Eosinophils 2.4 % (0.0-10.0); %Monocytes 6.9 % (0.0-10.0); %Neutrophils 71.6 % (42.0-75.0); Hemoglobin 11.4 g/dL (14.0-18.0); Mean Corpuscular HGB CONC 31.8 g/dL (32.0-36.0); Mean Corpuscular Hemoglobin 27.6 pg (27.0-31.0); Mean Platelet Volume 7.4 fL (7.4-10.4); Platelet Count 136 thou/uL (130-400); RBC Distribution Width 14.4 % (11.5-14.5); Red Blood Cell (RBC) Count 4.15 mill/uL (4.70-6.10); White Blood Cell (WBC) Count 4.4 thou/uL (4.8-10.8)
[2019-05-15 16:16] LABS: ALT (SGPT) 18 U/L (8-55); AST (SGOT) 21 U/L (5-34); Albumin 3.3 g/dL (3.4-4.8); Alkaline Phosphatase 182 U/L (40-150); Anion Gap 18 mmol/L (10-20); BUN (Urea Nitrogen) 32 mg/dL (8.4-25.7); Bilirubin, Total 0.8 mg/dL (0.2-1.2); Calc. Creatinine Clearance 0 mL/min (70-130); Calcium 8.8 mg/dL (7.8-10.44); Carbon Dioxide 25 mmol/L (23-31); Chloride 95 mmol/L (98-107); Estimated GFR-MDRD 36; Glucose 531 mg/dL (83-110); Potassium 4.5 mmol/L (3.5-5.1); Protein, Total 6.3 g/dL (5.8-8.1); Sodium 133 mmol/L (136-145)
[2019-05-15] MEDS ORDERED: Sodium Chloride 0.9% 100 ML ONE (16:27)
[2019-05-15] MEDS ORDERED: cefTRIAXone\\ROCEPHIN 1 GM VIAL ONE (16:27)
[2019-05-15] MEDS ORDERED: Sulfameth/Trimethoprim DS 800-160mg TAB ONE (16:29)
== END 2019-05-15 17:05 | disposition home or self-care (01) ==
LOC: MADERS 14:49
DX: T87.43 Infection of amputation stump, right lower extremity (principal); L89.899 Pressure ulcer of other site, unspecified stage; L03.116 Cellulitis of left lower limb; E11.9 Type 2 diabetes mellitus without complications; M10.9 Gout, unspecified; E78.5 Hyperlipidemia, unspecified; I11.0 Hypertensive heart disease with heart failure; I50.9 Heart failure, unspecified; Z79.899 Other long term (current) drug therapy; Z79.82 Long term (current) use of aspirin; Z89.512 Acquired absence of left leg below knee; Z89.511 Acquired absence of right leg below knee
CPT/HCPCS: 36415; 80053; 83605; 85025; 87040; 96365; J0696; J3490

== ENCOUNTER 2019-06-25 16:07 | Emergency (ER) | payer MEDICARE, MEDICAID ==
[2019-06-25 17:09] LABS: #Eosinphils 0.1 thou/uL (0.0-0.7); #Lymphocytes 0.6 thou/uL (1.20-3.40); #Monocytes 0.3 thou/uL (0.11-0.59); #Neutrophils 3.2 thou/uL (1.40-6.50); %Basophils 0.5 % (0.0-1.0); %Lymphocytes 14.9 % (21.0-51.0); %Monocytes 7.7 % (0.0-10.0); %Neutrophils 74.9 % (42.0-75.0); Hemoglobin 11.3 g/dL (14.0-18.0); Mean Corpuscular HGB CONC 31.4 g/dL (32.0-36.0); Mean Corpuscular Hemoglobin 27.1 pg (27.0-31.0); Mean Corpuscular Volume 86.5 fL (78.0-98.0); Mean Platelet Volume 7.4 fL (7.4-10.4); Platelet Count 136 thou/uL (130-400); RBC Distribution Width 16.1 % (11.5-14.5); Red Blood Cell (RBC) Count 4.16 mill/uL (4.70-6.10); White Blood Cell (WBC) Count 4.3 thou/uL (4.8-10.8)
[2019-06-25 17:23] LABS: ALT (SGPT) 13 U/L (8-55); AST (SGOT) 19 U/L (5-34); Albumin 3.2 g/dL (3.4-4.8); Alkaline Phosphatase 178 U/L (40-150); Anion Gap 16 mmol/L (10-20); BUN (Urea Nitrogen) 36 mg/dL (8.4-25.7); Bilirubin, Total 0.7 mg/dL (0.2-1.2); Calc. Creatinine Clearance 0 mL/min (70-130); Calcium 8.3 mg/dL (7.8-10.44); Carbon Dioxide 23 mmol/L (23-31); Chloride 101 mmol/L (98-107); Estimated GFR-MDRD 37; Globulin 3.2 g/dL (2.4-3.5); Potassium 3.6 mmol/L (3.5-5.1); Protein, Total 6.4 g/dL (5.8-8.1); Sodium 136 mmol/L (136-145)
[2019-06-25 17:31] LABS: Glucose 580 mg/dL (83-110)
[2019-06-25 17:41] LABS: CKMB 5.1 ng/mL (0-6.6)
[2019-06-25] MEDS ORDERED: Furosemide 40 MG TAB ONE (17:45)
[2019-06-25] MEDS ORDERED: Insulin Regular 300 UNITS/3 ML VIAL ONE (17:45)
[2019-06-25] MEDS ORDERED: Furosemide 40 MG/4 ML VIAL ONE (17:45)
--- NOTE | 2019-06-25 18:30 | RAD ---
Portable frontal chest radiograph: 06/25/2019 COMPARISON: 11/29/2017 HISTORY: Dyspnea FINDINGS: As seen on the prior examination there is dense opacity in the right lung base with obscura tion of the right heart border, the right hemidiaphragm, and the right costophrenic angle. There is also persistent increased density within the medial left base obscuring the medial aspect of the left hemidiaphragm. Midline sternotomy wires are present. No pneumothorax. IMPRESSION: Nonspecific chronic bibasilar pulmonary parenchymal opacity with stable moderate right pl eural effusion. Question pulmonary edema or infectious pneumonitis.
== END 2019-06-25 20:08 | disposition home or self-care (01) ==
LOC: MADERS 16:07
DX: J90 Pleural effusion, not elsewhere classified (principal); I11.0 Hypertensive heart disease with heart failure; I50.9 Heart failure, unspecified; N28.9 Disorder of kidney and ureter, unspecified; E78.5 Hyperlipidemia, unspecified; M10.9 Gout, unspecified; Z79.82 Long term (current) use of aspirin; Z79.01 Long term (current) use of anticoagulants; Z79.899 Other long term (current) drug therapy
CPT/HCPCS: 36415; 36416; 71045; 80053; 82553; 83880; 84484; 85025; 85379; 93005; 94760; 96374; 96375; J1815; J1940